=== PATIENT | female | born 1995 | race Caucasian/White ===

== ENCOUNTER 2018-03-31 07:40 | Inpatient (IN) ==
[2018-03-31] MEDS ORDERED: Ondansetron ODT 4 MG TAB.RAPDIS SL ONE (07:52)
--- NOTE | 2018-03-31 07:56 | Emergency Department Note ---
Disposition Clinical Impression: Nausea & vomiting Qualifiers: Vomiting type: unspecified Vomiting Intractability: non-intractable Qualified Code(s): R11.2 - Nausea with vomiting, unspecified Fever Qualifiers: Fever type: unspecified Qualified Code(s): R50.9 - Fever, unspecified Disposition: Admitted As Inpatient Condition: Fair Time of Disposition: 12:23 General Adult HPI - General Stated complaint: Flu like symptoms Time Seen by Provider: 03/31/18 07:45 Source: patient, family Mode of arrival: ambulatory Limitations: no limitations Nursing Notes Reviewed: Yes Vital Signs Reviewed: Yes - History of Present Illness HPI Narrative: 22-year-old female with significant past medical history of hypertension currently not taking any medication presenting to the emergency department chief complaint of acute onset nausea, vomiting and diarrhea. Patient states yesterday she was feeling like herself. Today she woke up early to go black Tuesday shopping and ate [place] food. Approximately 2 hours after she ate she had acute onset of nausea, vomiting and diarrhea. Patient has had 5-6 episodes of nonbloody nonbilious vomiting. Similar amount of episodes of nonbloody diarrhea. Mother at bedside was concerned when she stood up and lost her bowels because she could not make it to the bathroom. She brought her here for further evaluation. Patient states she feels warm but has not taken her temperature. Denies any chest pain or shortness of breath. Denies any sick contacts. - Related Data Home Medications Medication Instructions Recorded Confirmed Clindamycin Phos/Benzoyl Perox 1 appl TP BID 12/23/15 12/23/15 [Benzaclin Gel] Levothyroxine [Synthroid] 50 mcg PO DAILY 12/23/15 12/23/15 Lisinopril [Zestril] 5 mg PO DAILY 12/23/15 12/23/15 Norgestimate-Ethinyl Estradiol 1 tab PO DAILY 12/23/15 12/23/15 [Ortho Tri-Cyclen 28 Tablet] Omeprazole [PriLOSEC] 20 mg PO DAILY 12/23/15 12/23/15 metFORMIN [Glucophage] 250 mg PO 0800 12/23/15 12/23/15 Previous Rx's Medication Instructions Recorded Hydrocodone/Acetaminophen [[place] 1 - 2 tab PO Q6H PRN #20 tab 12/19/15 5-325 Tablet] Oxycodone HCl/Acetaminophen 1 each PO Q6HR PRN #28 tablet 12/23/15 [Percocet 10-325 mg Tablet] Rivaroxaban [Xarelto] 10 mg PO DAILY #20 tablet 12/23/15 Dicyclomine [Bentyl] 20 mg PO TID PRN #20 capsule 06/24/16 Naproxen [Naprosyn] 500 mg PO BID PRN #14 tablet 06/24/16 Allergies Allergy/AdvReac Type Severity Reaction Status Date / Time No Known Allergies Allergy Verified 12/19/15 22:18 All systems ED: reviewed and negative except as stated. Constitutional: Reports: as per HPI Eyes: Reports: as per HPI ENT ED: Reports: as per HPI Cardiovascular: Denies: chest pain, palpitations, dyspnea on exertion Respiratory: Denies: cough, dyspnea, wheezes Gastrointestinal: Reports: nausea, vomiting, diarrhea Genitourinary: Reports: as per HPI Musculoskeletal: Reports: as per HPI Integumentary: Reports: as per HPI Neurological: Denies: numbness, paresthesias Psychiatric: Reports: as per HPI Endocrine: Reports: as per HPI Hematological/Lymphatic: Reports: as per HPI Allergic/Immunologic: Reports: as per HPI Past Medical History - Past Medical History Attestation: Yes The following information was validated with the patient. Medical history: Reports: GERD, hypertension Psychiatric history: Reports: ADHD - Social History Smoking Status: Never smoker Alcohol use: Reports: none Drug use: Reports: none Physical Exam - General Limitations: no limitations General appearance: alert, in no apparent distress - Head Head exam: atraumatic, normocephalic, normal inspection - Eye Eye exam: Present: normal appearance. Absent: scleral icterus, conjunctival injection - ENT ENT exam: normal exam, mucous membranes moist - Neck Neck exam: Present: normal inspection, full ROM. Absent: tenderness, meningis mus - Chest Chest inspection: Present: normal inspection, symmetric chest wall rise. Absent: tenderness, rash - Respiratory Respiratory exam: Present: normal lung sounds bilaterally. Absent: respiratory distress, wheezes - Cardiovascular Cardiovascular exam: Present: regular rate, normal rhythm, normal heart sounds - Abdominal Exam Abdominal exam: Present: soft, tenderness. Absent: distention, guarding, rebound, rigidity Abdominal tenderness: Present: diffuse, mild - Extremities Exam Extremities exam: Present: normal inspection, full ROM - Neurological Exam Neurological exam: Present: alert, oriented X3 - Psychiatric Psychiatric exam: Present: normal affect, normal mood - Skin Skin exam: Present: warm Course Course Narrative: 22-year-old female presenting for acute onset nausea, vomiting and diarrhea. In the room patient is alert and oriented 3 and hemodynamically stable. Patient's physical exam shows mild diffuse tenderness to abdomen but otherwise is benign. At this time we will provide her with sublingual Zofran and perform basic laboratory analysis including CBC, BMP, urinalysis and chest x-ray. We will also obtain a flu swab. Patient is febrile in the room. We will provide her with Tylenol as well. Disposition pending results. Patient agrees with this plan. - Reevaluation(s) Reevaluation #1: Patient's laboratory analysis shows leukocytosis but otherwise no acute abnormality. Patient CT of the abdomen and pelvis does not show any acute abn ormality. Influenza test negative. Patient still actively vomiting after Zofran. Phenergan given. After approximately 30 minutes after Phenergan was given patient attended by mouth challenge and vomited multiple times after. Due to patient's tachycardia, fever and intractable nausea and vomiting will plan to admit the patient for further treatment of fluid resuscitation. Patient remains alert and oriented 3 and hemodynamically stable. I spoke with the hospitalist sanitation technician Dr. Robles who agrees to accept the patient at this time. Vital Signs Temperature 103.2 F H 03/31/18 07:56 Pulse Rate 132 03/31/18 07:56 Respiratory Rate 18 03/31/18 07:56 Blood Pressure 136/98 03/31/18 07:56 O2 Sat by Pulse Oximetry 95 03/31/18 07:56 Temperature 101.7 F H 03/31/18 09:46 Pulse Rate 132 03/31/18 07:56 Respiratory Rate 18 03/31/18 07:56 Blood Pressure 136/98 03/31/18 07:56 O2 Sat by Pulse Oximetry 95 03/31/18 07:56 Oxygen Delivery Oxygen Delivery Room Air Medical Decision Making - Lab Data Result diagrams: 03/31/18 08:01 03/31/18 08:09 Lab Results 03/31/18 03/31/18 03/31/18 Range/Units 08:01 08:09 08:09 WBC 16.7 H (4.3-11.1) K/mcL RBC 5.88 H (3.82-4.97) M/mcL Hgb 13.4 (11.5-15.4) g/dL Hct 43.6 (35.3-44.9) % MCV 74.1 L (83.0-100.0) fL MCH 22.8 L (28.0-33.3) pg MCHC 30.7 L (31.6-35.5) g/dL RDW 17.2 H (11.5-14.5) % Plt Count 473 H (140-400) K/mcL MPV 9.7 (9.4-12.4) fL Immature Gran % 0.5 (0-4) % Seg Neutrophils % 88.4 % Lymphocytes % 4.0 % Monocytes % 5.8 % Eosinophils % 1.0 % Basophils % 0.3 % Neutrophils # 14.8 H (1.6-8.9) K/mcL Lymphocytes # 0.7 (0.6-4.6) K/mcL Monocytes # 1.0 (0.0-1.3) K/mcL Eosinophils # 0.2 (0.0-0.6) K/mcL Basophils # 0.1 (0.0-0.2) K/mcL Sodium 138 (136-145) mEq/L Potassium 4.0 (3.5-5.1) mEq/L Chloride 104 (98-107) mEq/L Carbon Dioxide 21 L (23-29) mEq/L BUN 16 (6-20) mg/dL Creatinine 0.77 (0.60-1.20) mg/dL Est GFR ( Amer) > 60 (> 60) Est GFR (Non-Af Amer) > 60 (> 60) BUN/Creatinine Ratio 21 (6-26) Glucose 188 H (70-105) mg/dL Calculated Osmolality 292 (280-300) Calcium 9.3 (8.6-10.3) mg/dL Total Bilirubin 0.4 (0.3-1.0) mg/dL Direct Bilirubin 0.1 (0.0-0.2) mg/dL Indirect Bilirubin 0.3 (0.0-1.2) mg/dL AST 26 (13-39) Units/L ALT 24 (7-52) Units/L Alkaline Phosphatase 99 (34-104) Units/L Serum Total Protein 8.3 (6.4-8.9) g/dL Albumin 4.2 (3.5-5.7) g/dL Globulin 4.1 H (2.4-3.5) g/dL Albumin/Globulin Ratio 1.0 L (1.1-2.2) Lipase 4 L (11-82) Units/L Ur Specimen Adequacy Urine Color (Yellow) Urine Clarity (Clear) Urine pH (5.0-8.0) pH Units Ur Specific [place] (1.010-1.025) Urine Protein (Neg-Trace) mg/dL Urine Glucose (UA) (Normal) mg/dL Urine Ketones (Negative) mg/dL Urine Blood (Negative) Urine Nitrite (Negative) Urine Bilirubin (Negative) Urine Urobilinogen (Normal) mg/dL Ur Leukocyte Esterase (Negative) Urine Microscopic RBC (0-3) per hpf Urine Microscopic WBC (0-3) per hpf Ur Squamous Epith Cells (None-Few) per lpf Urine Bacteria (None-Few) per hpf Hyaline Casts (None-Few) per lpf Ur Culture Indicated? (NO) Urine Test (Negative) Hepatitis A IgM Ab Nonreactive (Nonreactive) Hep Bs Antigen Nonreactive (Nonreactive) Hep B Core IgM Ab Nonreactive (Nonreactive) Hepatitis C Ab Screen Nonreactive (Nonreactive) 03/31/18 03/31/18 Range/Units 08:13 08:13 WBC (4.3-11.1) K/mcL RBC (3.82-4.97) M/mcL Hgb (11.5-15.4) g/dL Hct (35.3-44.9) % MCV (83.0-100.0) fL MCH (28.0-33.3) pg MCHC (31.6-35.5) g/dL RDW (11.5-14.5) % Plt Count (140-400) K/mcL MPV (9.4-12.4) fL Immature Gran % (0-4) % Seg Neutrophils % % Lymphocytes % % Monocytes % % Eosinophils % % Basophils % % Neutrophils # (1.6-8.9) K/mcL Lymphocytes # (0.6-4.6) K/mcL Monocytes # (0.0-1.3) K/mcL Eosinophils # (0.0-0.6) K/mcL Basophils # (0.0-0.2) K/mcL Sodium (136-145) mEq/L Potassium (3.5-5.1) mEq/L Chloride (98-107) mEq/L Carbon Dioxide (23-29) mEq/L BUN (6-20) mg/dL Creatinine (0.60-1.20) mg/dL Est GFR ( Amer) (> 60) Est GFR (Non-Af Amer) (> 60) BUN/Creatinine Ratio (6-26) Glucose (70-105) mg/dL Calculated Osmolality (280-300) Calcium (8.6-10.3) mg/dL Total Bilirubin (0.3-1.0) mg/dL Direct Bilirubin (0.0-0.2) mg/dL Indirect Bilirubin (0.0-1.2) mg/dL AST (13-39) Units/L ALT (7-52) Units/L Alkaline Phosphatase (34-104) Units/L Serum Total Protein (6.4-8.9) g/dL Albumin (3.5-5.7) g/dL Globulin (2.4-3.5) g/dL Albumin/Globulin Ratio (1.1-2.2) Lipase (11-82) Units/L Ur Specimen Adequacy See below A Urine Color Dark Yellow (Yellow) Urine Clarity Turbid A (Clear) Urine pH 5.0 (5.0-8.0) pH Units Ur Specific [place] 1.020 (1.010-1.025) Urine Protein 100 H (Neg-Trace) mg/dL Urine Glucose (UA) Normal (Normal) mg/dL Urine Ketones Trace H (Negative) mg/dL Urine Blood Large H (Negative) Urine Nitrite Negative (Negative) Urine Bilirubin Moderate H (Negative) Urine Urobilinogen Normal (Normal) mg/dL Ur Leukocyte Esterase Moderate H (Negative) Urine Microscopic RBC TNTC H (0-3) per hpf Urine Microscopic WBC 15-30 H (0-3) per hpf Ur Squamous Epith Cells Many H (None-Few) per lpf Urine Bacteria Few (None-Few) per hpf Hyaline Casts None Seen (None-Few) per lpf Ur Culture Indicated? NO. A (NO) Urine Test Negative (Negative) Hepatitis A IgM Ab (Nonreactive) Hep Bs Antigen (Nonreactive) Hep B Core IgM Ab (Nonreactive) Hepatitis C Ab Screen (Nonreactive)
[2018-03-31] MEDS ORDERED: 0.9 % Sodium Chloride 1,000 ML IVC ONE (08:01)
[2018-03-31 08:22] LABS: Basophils # 0.1 K/mcL (0.0-0.2); Basophils % 0.3 %; Eosinophils # 0.2 K/mcL (0.0-0.6); Hematocrit 43.6 % (35.3-44.9); Hemoglobin 13.4 g/dL (11.5-15.4); Immature Granulocytes % 0.5 % (0-4); Lymphocytes # 0.7 K/mcL (0.6-4.6); Mean Corpuscular HGB Conc 30.7 g/dL (31.6-35.5); Mean Corpuscular Hemoglobin 22.8 pg (28.0-33.3); Mean Corpuscular Volume 74.1 fL (83.0-100.0); Mean Platelet Volume 9.7 fL (9.4-12.4); Monocytes % 5.8 %; Neutrophils # 14.8 K/mcL (1.6-8.9); Platelet Count 473 K/mcL (140-400); Red Blood Count 5.88 M/mcL (3.82-4.97); Red Cell Distribution Width 17.2 % (11.5-14.5); Segmented Neutrophils % 88.4 %
[2018-03-31 08:29] LABS: Bilirubin,Urine Moderate (Negative); Blood,Urine Large (Negative); Clarity,Urine Turbid (Clear); Color,Urine Dark Yellow (Yellow); Glucose,Urine (UA) Normal (Normal); Ketones,Urine Trace mg/dL (Negative); Leukocyte Esterase,Urine Moderate (Negative); Nitrite,Urine Negative (Negative); Protein,Urine 100 mg/dL (Neg-Trace); Urobilinogen,Urine Normal (Normal)
[2018-03-31 08:35] LABS: Bacteria,Urine Few per hpf (None-Few); Hyaline Casts,Urine None Seen per lpf (None-Few); RBC,Urine TNTC per hpf (0-3); Squamous Epithelial Cell,Urine Many per lpf (None-Few); WBC,Urine 15-30 per hpf (0-3)
[2018-03-31 08:40] LABS: BUN/Creatinine Ratio 21 (6-26); Blood Urea Nitrogen 16 mg/dL (6-20); Calcium 9.3 mg/dL (8.6-10.3); Carbon Dioxide 21 mEq/L (23-29); Chloride 104 mEq/L (98-107); Glucose 188 mg/dL (70-105); Osmolality,Calculated 292 (280-300); Sodium 138 mEq/L (136-145); eGFR For Non-African Americans > 60 (> 60)
--- NOTE | 2018-03-31 08:50 | Emergency Department Note ---
Disposition Clinical Impression: Nausea & vomiting Qualifiers: Vomiting type: unspecified Vomiting Intractability: non-intractable Qualified Code(s): R11.2 - Nausea with vomiting, unspecified Sepsis Qualifiers: Sepsis type: sepsis due to unspecified organism Qualified Code(s): A41.9 - Sepsis, unspecified organism Disposition: Still a Patient Referrals: Semaj Bashir MD [Primary Care Provider] - General Adult HPI - General Chief complaint: ED Nausea/Vomiting/Diarrhea Stated complaint: Flu like symptoms Time Seen by Provider: 03/31/18 07:45 Source: patient, family Mode of arrival: ambulatory Limitations: no limitations - History of Present Illness Pain Scale: 5 - Related Data Home Medications Medication Instructions Recorded Confirmed Clindamycin Phos/Benzoyl Perox 1 appl TP BID 12/23/15 12/23/15 [Benzaclin Gel] Levothyroxine [Synthroid] 50 mcg PO DAILY 12/23/15 12/23/15 Lisinopril [Zestril] 5 mg PO DAILY 12/23/15 12/23/15 Norgestimate-Ethinyl Estradiol 1 tab PO DAILY 12/23/15 12/23/15 [Ortho Tri-Cyclen 28 Tablet] Omeprazole [PriLOSEC] 20 mg PO DAILY 12/23/15 12/23/15 metFORMIN [Glucophage] 250 mg PO 0800 12/23/15 12/23/15 Previous Rx's Medication Instructions Recorded Hydrocodone/Acetaminophen [[place] 1 - 2 tab PO Q6H PRN #20 tab 12/19/15 5-325 Tablet] Oxycodone HCl/Acetaminophen 1 each PO Q6HR PRN #28 tablet 12/23/15 [Percocet 10-325 mg Tablet] Rivaroxaban [Xarelto] 10 mg PO DAILY #20 tablet 12/23/15 Dicyclomine [Bentyl] 20 mg PO TID PRN #20 capsule 06/24/16 Naproxen [Naprosyn] 500 mg PO BID PRN #14 tablet 06/24/16 Allergies Allergy/AdvReac Type Severity Reaction Status Date / Time No Known Allergies Allergy Verified 12/19/15 22:18 Constitutional: Reports: as per HPI Eyes: Reports: as per HPI ENT ED: Reports: as per HPI Cardiovascular: Denies: chest pain, palpitations, dyspnea on exertion Respiratory: Denies: cough, dyspnea, wheezes Gastrointestinal: Reports: nausea, vomiting, diarrhea Genitourinary: Reports: as per HPI Musculoskeletal: Reports: as per HPI Integumentary: Reports: as per HPI Neurological: Denies: numbness, paresthesias Psychiatric: Reports: as per HPI Endocrine: Reports: as per HPI Hematological/Lymphatic: Reports: as per HPI Allergic/Immunologic: Reports: as per HPI Past Medical History - Past Medical History Medical history: Reports: GERD, hypertension Psychiatric history: Reports: ADHD - Social History Smoking Status: Never smoker Smokeless Tobacco Status: No Alcohol use: Reports: none Drug use: Reports: none Physical Exam - General Limitations: no limitations General appearance: alert, in no apparent distress Course Vital Signs Temperature 103.2 F H 03/31/18 07:56 Pulse Rate 132 03/31/18 07:56 Respiratory Rate 18 03/31/18 07:56 Blood Pressure 136/98 03/31/18 07:56 O2 Sat by Pulse Oximetry 95 03/31/18 07:56 Temperature 103.2 F H 03/31/18 07:56 Pulse Rate 132 03/31/18 07:56 Respiratory Rate 18 03/31/18 07:56 Blood Pressure 136/98 03/31/18 07:56 O2 Sat by Pulse Oximetry 95 03/31/18 07:56 Oxygen Delivery Oxygen Delivery Room Air Medical Decision Making - Lab Data Result diagrams: 03/31/18 08:01 03/31/18 08:09 Lab Results 03/31/18 03/31/18 03/31/18 Range/Units 08:01 08:09 08:13 WBC 16.7 H (4.3-11.1) K/mcL RBC 5.88 H (3.82-4.97) M/mcL Hgb 13.4 (11.5-15.4) g/dL Hct 43.6 (35.3-44.9) % MCV 74.1 L (83.0-100.0) fL MCH 22.8 L (28.0-33.3) pg MCHC 30.7 L (31.6-35.5) g/dL RDW 17.2 H (11.5-14.5) % Plt Count 473 H (140-400) K/mcL MPV 9.7 (9.4-12.4) fL Immature Gran % 0.5 (0-4) % Seg Neutrophils % 88.4 % Lymphocytes % 4.0 % Monocytes % 5.8 % Eosinophils % 1.0 % Basophils % 0.3 % Neutrophils # 14.8 H (1.6-8.9) K/mcL Lymphocytes # 0.7 (0.6-4.6) K/mcL Monocytes # 1.0 (0.0-1.3) K/mcL Eosinophils # 0.2 (0.0-0.6) K/mcL Basophils # 0.1 (0.0-0.2) K/mcL Sodium 138 (136-145) mEq/L Potassium 4.0 (3.5-5.1) mEq/L Chloride 104 (98-107) mEq/L Carbon Dioxide 21 L (23-29) mEq/L BUN 16 (6-20) mg/dL Creatinine 0.77 (0.60-1.20) mg/dL Est GFR ( Amer) > 60 (> 60) Est GFR (Non-Af Amer) > 60 (> 60) BUN/Creatinine Ratio 21 (6-26) Glucose 188 H (70-105) mg/dL Calculated Osmolality 292 (280-300) Calcium 9.3 (8.6-10.3) mg/dL Ur Specimen Adequacy See below A Urine Color Dark Yellow (Yellow) Urine Clarity Turbid A (Clear) Urine pH 5.0 (5.0-8.0) pH Units Ur Specific [place] 1.020 (1.010-1.025) Urine Protein 100 H (Neg-Trace) mg/dL Urine Glucose (UA) Normal (Normal) mg/dL Urine Ketones Trace H (Negative) mg/dL Urine Blood Large H (Negative) Urine Nitrite Negative (Negative) Urine Bilirubin Moderate H (Negative) Urine Urobilinogen Normal (Normal) mg/dL Ur Leukocyte Esterase Moderate H (Negative) Urine Microscopic RBC TNTC H (0-3) per hpf Urine Microscopic WBC 15-30 H (0-3) per hpf Ur Squamous Epith Cells Many H (None-Few) per lpf Urine Bacteria Few (None-Few) per hpf Hyaline Casts None Seen (None-Few) per lpf Ur Culture Indicated? NO. A (NO) Urine Test (Negative) 03/31/18 Range/Units 08:13 WBC (4.3-11.1) K/mcL RBC (3.82-4.97) M/mcL Hgb (11.5-15.4) g/dL Hct (35.3-44.9) % MCV (83.0-100.0) fL MCH (28.0-33.3) pg MCHC (31.6-35.5) g/dL RDW (11.5-14.5) % Plt Count (140-400) K/mcL MPV (9.4-12.4) fL Immature Gran % (0-4) % Seg Neutrophils % % Lymphocytes % % Monocytes % % Eosinophils % % Basophils % % Neutrophils # (1.6-8.9) K/mcL Lymphocytes # (0.6-4.6) K/mcL Monocytes # (0.0-1.3) K/mcL Eosinophils # (0.0-0.6) K/mcL Basophils # (0.0-0.2) K/mcL Sodium (136-145) mEq/L Potassium (3.5-5.1) mEq/L Chloride (98-107) mEq/L Carbon Dioxide (23-29) mEq/L BUN (6-20) mg/dL Creatinine (0.60-1.20) mg/dL Est GFR ( Amer) (> 60) Est GFR (Non-Af Amer) (> 60) BUN/Creatinine Ratio (6-26) Glucose (70-105) mg/dL Calculated Osmolality (280-300) Calcium (8.6-10.3) mg/dL Ur Specimen Adequacy Urine Color (Yellow) Urine Clarity (Clear) Urine pH (5.0-8.0) pH Units Ur Specific [place] (1.010-1.025) Urine Protein (Neg-Trace) mg/dL Urine Glucose (UA) (Normal) mg/dL Urine Ketones (Negative) mg/dL Urine Blood (Negative) Urine Nitrite (Negative) Urine Bilirubin (Negative) Urine Urobilinogen (Normal) mg/dL Ur Leukocyte Esterase (Negative) Urine Microscopic RBC (0-3) per hpf Urine Microscopic WBC (0-3) per hpf Ur Squamous Epith Cells (None-Few) per lpf Urine Bacteria (None-Few) per hpf Hyaline Casts (None-Few) per lpf Ur Culture Indicated? (NO) Urine Test Negative (Negative) Attestation Statement - Attestation Attestation: I examined this patient and my medical decision-making was reviewed with the Resident Physician. I agree with the documented findings, disposition and vinh tment plan as described except to the extent set forth below. 22 year old female presents to the ED with complaints of flu like symptoms and states that she thnks she hd bad [place] food yesterday and is febrile on exam in additiont to being tachcyardiac thus meeting SIRS criteria. Patinet states that this has been going on ith OK for the past 2 hours. We will start sepsis protocol and obtain ABCT for further evlaution as this may be food poisoning vs colitis.
[2018-03-31 09:46] LABS: Albumin 4.2 g/dL (3.5-5.7); Alkaline Phosphatase 99 Units/L (34-104); Aspartate Amino Transferase 26 Units/L (13-39); Bilirubin,Direct 0.1 mg/dL (0.0-0.2); Bilirubin,Indirect 0.3 mg/dL (0.0-1.2); Bilirubin,Total 0.4 mg/dL (0.3-1.0); Globulin 4.1 g/dL (2.4-3.5); Lipase 4 Units/L (11-82); Total Protein 8.3 g/dL (6.4-8.9)
[2018-03-31 10:06] LABS: Hepatitis A Antibody IgM Nonreactive (Nonreactive); Hepatitis B Core IgM Nonreactive (Nonreactive); Hepatitis B Surface Antigen Nonreactive (Nonreactive); Hepatitis C Virus Antibody Nonreactive (Nonreactive)
[2018-03-31 10:12] LABS: Alanine Aminotransferase 24 Units/L (7-52)
[2018-03-31] MEDS ORDERED: *HR* Promethazine 25 MG/ML VIAL IVP ONE (10:15)
[2018-03-31] MEDS ORDERED: Promethazine 25 MG in 0.9 % Sodium Chloride 50 ML IVPB ONE (10:30)
[2018-03-31] MEDS ORDERED: Naloxone 0.4 MG/ML INJ IVP PRN (14:09)
--- NOTE | 2018-03-31 14:18 | Internal Med History&Physical ---
Date of Encounter: 03/31/18 Time of Encounter: 14:16 Internal Medicine - H&P: HPI Chief complaint: ABD pain, N/V/D Admitted From: Home Plans for Post Hospital Care: Home History of present illness: Ms. Dos Santos is a 22 year old female probably cystic ovarian syndrome presented to [facility] on 03/31/2018 with complaints of abdominal pain, nausea, vomiting and diarrhea. She was placed in observation status for further workup and treatment. Information obtained from chart review and patient report. Patient said she was in her usual state of health until O2 100 this morning. Says she went out plaque Tuesday shopping and stopped at food court and had [place] food. Says she went home and is initiated later down to acute onset of abdominal pain. Projectile vomiting and loose/watery stool. No sick contacts that she is aware of and person she was with you had same food is not experiencing same symptoms. Denied recent ATB use. Says she feels a little better on my exam but still feels very nauseated and unable to keep anything down. Last loose stool was approximately 2 hours ago. Past Med Surg Social Fam HX - Past Medical History Medical history: GERD, hypertension Psychiatric history: ADHD - Past Surgical History Additional surgical history: right ankle. cyst removed from back - Social History Smoking Status: Never smoker Smokeless Tobacco Status: No Alcohol use: none Drug use: none - Additional Family History Additional family history: HI history reviewed and noncontributory per patient Internal Medicine - H&P: Meds No Known Home Drugs 03/31/18 [History] Allergy/AdvReac Type Severity Reaction Status Date / Time No Known Allergies Allergy Verified 12/19/15 22:18 All Systems PM: A 10-system review of systems was performed and is negative for pertinent findings except as documented above in the HPI. - Constitutional Constitutional: fever(s), weakness - EENT Eyes: no change in vision, no discharge, no pain, no photophobia Ears: no ear discharge, no ear pain, no tinnitus Nose, mouth and throat: no dysphagia, no nasal discharge, no neck pain, no sore throat - Cardiovascular Cardiovascular ROS IM: no chest pain, no diaphoresis, no dyspnea, no lightheadedness, no palpitations, no syncope - Respiratory Respiratory: no cough, no dyspnea, no wheezing, no excessive phlegm production - Gastrointestinal Gastrointestinal: abdominal pain, cramping, diarrhea, loose stools, vomiting - Genitourinary Genitourinary: no change in urinary stream, no dysuria, no flank pain, no hematuria - Musculoskeletal Musculoskeletal ROS IM: no numbness, no tingling - Integumentary Integumentary IM: no rash, no unusual bruising - Neurological Neurological ROS: no confusion, no convulsions, no focal weakness, no numbness, no tingling, no tremor(s) - Constitutional Vitals: Temp Pulse Resp BP Pulse Ox 101.7 F H 122 18 136/98 95 03/31/18 09:46 03/31/18 12:41 03/31/18 07:56 03/31/18 07:56 03/31/18 12:41 General appearance: Present: A&O X 3, morbidly obese, pleasant, no acute distress Exam: . - Head Head exam: Present: atraumatic, normocephalic - Eye Eye exam: Present: PERRL, conjuntiva pink, sclera anicteric Pupils: Present: PERRL - Neck Neck exam general surgery: Present: supple, trachea midline. Absent: lymphadenopathy - Respiratory Respiratory exam: Present: CTAB. Absent: accessory muscle use, rales, rhonchi, wheezes - Cardiovascular Cardiovascular exam: Present: RRR, +S1, +S2. Absent: diastolic murmur, gallop, rubs, systolic murmur - GI/Abdominal GI/Abdominal exam: Present: normal bowel sounds, soft, no peritoneal signs. Absent: distended, tenderness - Extremities Exam Extremities exam: Present: warm, radial pulses palpable and symmetrical. Absent: calf tenderness, cyanotic, pedal edema - Neurological Exam Neurological exam: Present: CN II-XII intact, oriented X3, no focal deficits. Absent: pronater drift, facial droop, speech deficit - Skin Skin exam: Present: dry, intact Internal Med - H&P Results - Labs CBC & Chem 7: 03/31/18 08:01 03/31/18 08:09 Labs: Short CBC 03/31/18 Range/Units 08:01 WBC 16.7 H (4.3-11.1) K/mcL Hgb 13.4 (11.5-15.4) g/dL Hct 43.6 (35.3-44.9) % Plt Count 473 H (140-400) K/mcL Neutrophils # 14.8 H (1.6-8.9) K/mcL BMP 03/31/18 08:09 Sodium 138 Potassium 4.0 Chloride 104 Carbon Dioxide 21 L BUN 16 Creatinine 0.77 Glucose 188 H Calcium 9.3 Liver Function 03/31/18 Range/Units 08:09 Total Bilirubin 0.4 (0.3-1.0) mg/dL Direct Bilirubin 0.1 (0.0-0.2) mg/dL AST 26 (13-39) Units/L ALT 24 (7-52) Units/L Alkaline Phosphatase 99 (34-104) Units/L Albumin 4.2 (3.5-5.7) g/dL Urine 03/31/18 Range/Units 08:13 Urine Color Dark Yellow (Yellow) Urine Clarity Turbid A (Clear) Urine pH 5.0 (5.0-8.0) pH Units Ur Specific [place] 1.020 (1.010-1.025) Urine Protein 100 H (Neg-Trace) mg/dL Urine Glucose (UA) Normal (Normal) mg/dL - Impressions ITS Impressions Chest X-Ray 03/31/18 08:01 IMPRESSION: 1. No active pulmonary disease. D/ / Rupert Shetty MD / Rupert Shetty MD Interpreting Provider: Rupert Shetty MD Abdomen/Pelvis CT 03/31/18 08:41 IMPRESSION: 1. No acute findings within the abdomen. 2. No acute findings within the pelvis. 3. Stable borderline mesenteric and retroperitoneal lymph nodes, unchanged compared to 06/24/2016. D/ / 03/31/2018 09:58:25 Luis Alfredo Devi MD / jen Interpreting Provider: Luis Alfredo Devi MD - Assessment and plan (1) Sepsis Current Visit: Yes Status: Acute Assessment and plan: with fever, elevated WBC and tachycardia on arrival. Multifactorial with possible gastroenteritis and UTI. Continue IV fluids. Start IV ceftriaxone for possible UTI once repeat UA with C&S is completed. Lactic acid and blood cx's pending Qualifiers: Sepsis type: sepsis due to unspecified organism Qualified Code(s): A41.9 - Sepsis, unspecified organism (2) UTI (urinary tract infection) Current Visit: Yes Status: Acute Assessment and plan: UA concerning for UTI. ABD CT evidence of pyelonephritis. Denied dysuria, flank pain. Urine culture not sent due to large number of epithelial cells. Repeat UA with C&S and start ceftriaxone. Follow urine culture and narrow ATB accordingly. Qualifiers: Urinary tract infection type: acute cystitis Hematuria presence: without hematuria Qualified Code(s): N30.00 - Acute cystitis without hematuria (3) Gastroenteritis Current Visit: Yes Status: Acute Assessment and plan: suspected. Presented with ABD pain, N/V/D that started on day of arrival after eating [place] food. No recent ATB use, no sick contacts. ABD CT nonacute. Cont supportive care with IV fluids, PRN IV zofran, NPO except ice chips/sips of H2O. GI panel pending. (4) Polycystic ovarian syndrome Current Visit: Yes Status: Acute Assessment and plan: per hx. Follow-up with PCP outpatient (5) Morbid obesity Current Visit: Yes Status: Acute Assessment and plan: BMI 42. Lifestyle modifications encouraged. Supposed to be on metformin and lisinopril at home for her polycystic ovarian syndrome. Will check Hgb A1c and monitor BP. (6) DVT prophylaxis Current Visit: Yes Status: Acute Assessment and plan: lovenox - Time Spent With Patient Total time spent is greater than 50% in coordination of care (as documented) at patient's floor/unit and/or counseling patient:
[2018-03-31] MEDS ORDERED: cefTRIAXone 1,000 MG in 0.9 % Sodium Chloride Mini Bag 100 ML IVPB SCH (15:00)
[2018-03-31] MEDS: 0.9 % Sodium Chloride 1,000 ML IVC SCH (15:25)
[2018-03-31 19:40] LABS: Adenovirus F 40/41 PCR Not detected (Not detect); Astrovirus PCR Not detected (Not detect); C.difficile Toxin A/B Gene PCR Not detected (Not detect); Campylobacter by PCR Not detected (Not detect); Cryptosporidium by PCR Not detected (Not detect); Cyclospora cayetanensis PCR Not detected (Not detect); E. coli O157 by PCR Not detected (Not detect); Entamoeba histolytica PCR Not detected (Not detect); Enteroaggregative E.coli(EAEC) Not detected (Not detect); Enteropathogenic E.coli(EPEC) Not detected (Not detect); Enterotoxigenic E.coli (ETEC) Not detected (Not detect); Norovirus GI/GII PCR DETECTED (Not detect); Plesiomonas shigelloides PCR Not detected (Not detect); Rotavirus A PCR Not detected (Not detect); Salmonella PCR Not detected (Not detect); Sapovirus PCR Not detected (Not detect); Shig/EnteroinvasiveE coli EIEC Not detected (Not detect); Shigalike tox-prod E coli STEC Not detected (Not detect); Vibrio PCR Not detected (Not detect); Vibrio cholerae PCR Not detected (Not detect); Yersinia enterocolitica PCR Not detected (Not detect)
[2018-03-31 19:43] LABS: Giardia lamblia PCR DETECTED (Not detect)
--- NOTE | 2018-03-31 20:24 | Event Note ---
Date of Encounter: 03/31/18 Time of Encounter: 19:50 Alerted by pts. nurse JOSE Stack that pts. GI panel was positive for Norovirus GI/GII PCR and Giardia Lamblia PCR. Contact precautions ordered and will continue pts. 0.9 NS IV fluids for Norovirus. 500 mg Metronidazole BID PO ordered for Giardia Lamblia. Culturelle PO ordered as well.
[2018-03-31] MEDS: metroNIDAZOLE 500 MG TABLET PO SCH (21:59)
[2018-03-31] MEDS: Lactobacillus 1 EACH CAP.SPRINK PO SCH (22:00)
[2018-04-01 04:33] LABS: Hematocrit 37.3 % (35.3-44.9); Mean Corpuscular HGB Conc 29.8 g/dL (31.6-35.5); Mean Corpuscular Hemoglobin 22.8 pg (28.0-33.3); Mean Corpuscular Volume 76.7 fL (83.0-100.0); Platelet Count 329 K/mcL (140-400); Red Blood Count 4.86 M/mcL (3.82-4.97); Red Cell Distribution Width 16.4 % (11.5-14.5)
[2018-04-01 04:42] LABS: Hemoglobin 11.1 g/dL (11.5-15.4)
[2018-04-01 04:52] LABS: BUN/Creatinine Ratio 19 (6-26); Blood Urea Nitrogen 11 mg/dL (6-20); Calcium 7.5 mg/dL (8.6-10.3); Carbon Dioxide 24 mEq/L (23-29); Chloride 104 mEq/L (98-107); Glucose 112 mg/dL (70-105); Osmolality,Calculated 282 (280-300); Potassium 3.2 mEq/L (3.5-5.1); Sodium 136 mEq/L (136-145); eGFR For Non-African Americans > 60 (> 60)
[2018-04-01] MEDS: 0.9 % Sodium Chloride 1,000 ML IVC SCH (04:54)
[2018-04-01] MEDS: *HR* Enoxaparin 40 MG/0.4 ML SYRINGE SQ SCH (06:10)
[2018-04-01] MEDS: metroNIDAZOLE 500 MG TABLET PO SCH ×2 (07:45→21:19)
[2018-04-01] MEDS: Lactobacillus 1 EACH CAP.SPRINK PO SCH (07:45)
--- NOTE | 2018-04-01 12:46 | Internal Med Progress Note ---
Hospitalist Progress Note - Encounter Date of Encounter: 04/01/18 Time of Encounter: 12:44 - Subjective Interval History: Patient is still has watery runny diarrhea but slowing down the frequency. Able to tolerate semisolid diet and willing to try advance diet. Patient denies nausea vomiting abdominal pain at this time. Review the lab. Patient denies fever chills dizziness chest pain cough shortness of breath. Noticed slight dark urine but denies burning micturition, increased frequency or urgency. - Exam Vitals: Temp Pulse Resp BP Pulse Ox 98.8 F 101 15 127/82 95 04/01/18 11:22 04/01/18 11:22 04/01/18 11:22 04/01/18 11:22 04/01/18 11:22 Exam: .General appearance: No acute distress, A&O X 3, obese Head exam: Atraumatic Eye exam: EOMI, PERRLA ENT exam: Moist oral mucosa Neck nontender, supple Respiratory exam: Clear to auscultation bilaterally Cardiovascular exam: Regular rate and rhythm, no systolic murmur Abdominal exam: Soft, nontender, nondistended, positive bowel sounds Extremities exam: No calf tenderness, no pedal edema Present: Skin-no rash, warm, dry, intact Neurological exam: CN II-XII intact, no focal deficits. No facial droop. Normal speech. - Assessment and Plan (1) Gastroenteritis Current Visit: Yes Status: Acute Assessment and Plan: Symptomatic but not improving. GI panel positive for Giardia and no rotavirus. Flagyl was started. He stopped Rocephin. Continue symptomatic treatment with IV fluid, antiemetic, PPI, probiotic. Possible discharge in 102 days once patient improved symptomatically (2) Polycystic ovarian syndrome Current Visit: Yes Status: Acute Assessment and Plan: per hx. Follow-up with PCP outpatient (3) Morbid obesity Current Visit: Yes Status: Acute Assessment and Plan: BMI 42. Lifestyle modifications encouraged. Supposed to be on metformin and lisinopril at home for her polycystic ovarian syndrome but not taking any medication. Ordered Hgb A1c and monitor BP. (4) Sepsis Current Visit: Yes Status: Acute Assessment and Plan: with fever, elevated WBC and tachycardia on arrival but normal lactic acid. Secondary to gastroenteritis possibly. Continue IV fluids. blood cx's no growth yet (5) UTI (urinary tract infection) Current Visit: Yes Status: Acute Assessment and Plan: On admission UA concerning for UTI. ABD CT with no acute finding. Urine culture not sent due to large number of epithelial cells. On my evaluation less likely UTI therefore they stopped Rocephin and ordered Repeat UA . Will consider urine culture and appropriate antibiotic if any concern of UTI. (6) DVT prophylaxis Current Visit: Yes Status: Acute Assessment and Plan: lovenox - Time Spent with Patient Total time spent is greater than 50% in coordination of care (as documented) at patient's floor/unit and/or counseling patient: 25 - 35 minutes Plan of Care Discussed with: patient (Plan of care discussed with nursing staff also) Internal Medicine: Result - Labs CBC & Chem 7: 04/01/18 03:24 04/01/18 03:24 Labs: Short CBC 04/01/18 Range/Units 03:24 WBC 9.4 (4.3-11.1) K/mcL Hgb 11.1 L D (11.5-15.4) g/dL Hct 37.3 (35.3-44.9) % Plt Count 329 (140-400) K/mcL BMP 04/01/18 03:24 Sodium 136 Potassium 3.2 L Chloride 104 Carbon Dioxide 24 BUN 11 Creatinine 0.58 L Glucose 112 H Calcium 7.5 L Consult Discharge Plan - Plan (4) Sepsis Qualifiers: Sepsis type: sepsis due to unspecified organism Qualified Code(s): A41.9 - Sepsis, unspecified organism (5) UTI (urinary tract infection) Qualifiers: Urinary tract infection type: acute cystitis Hematuria presence: without h ematuria Qualified Code(s): N30.00 - Acute cystitis without hematuria
[2018-04-01 14:29] LABS: Bilirubin,Urine Negative (Negative); Blood,Urine Moderate (Negative); Color,Urine Yellow (Yellow); Glucose,Urine (UA) Normal (Normal); Ketones,Urine Negative (Negative); Leukocyte Esterase,Urine Moderate (Negative); Nitrite,Urine Negative (Negative); PH,Urine 6.5 pH Units (5.0-8.0); Protein,Urine Negative (Neg-Trace); Specific Gravity,Urine < 1.005 (1.010-1.025); Urobilinogen,Urine Normal (Normal)
[2018-04-01 14:32] LABS: Bacteria,Urine None Seen per hpf (None-Few); Hyaline Casts,Urine None Seen per lpf (None-Few); Squamous Epithelial Cell,Urine Many per lpf (None-Few); WBC,Urine 0-3 per hpf (0-3)
[2018-04-01 14:33] LABS: Clarity,Urine Clear (Clear)
[2018-04-01] MEDS: Acetaminophen 325 MG TABLET PO PRN (16:28)
[2018-04-01] MEDS: Ondansetron 4 MG/2 ML VIAL IVP PRN (22:05)
[2018-04-02 03:04] LABS: Hematocrit 35.8 % (35.3-44.9); Hemoglobin 10.9 g/dL (11.5-15.4); Mean Corpuscular HGB Conc 30.4 g/dL (31.6-35.5); Mean Corpuscular Hemoglobin 22.9 pg (28.0-33.3); Mean Corpuscular Volume 75.1 fL (83.0-100.0); Mean Platelet Volume 9.6 fL (9.4-12.4); Platelet Count 320 K/mcL (140-400); Red Blood Count 4.77 M/mcL (3.82-4.97); Red Cell Distribution Width 16.1 % (11.5-14.5)
[2018-04-02 03:22] LABS: BUN/Creatinine Ratio 11 (6-26); Blood Urea Nitrogen 6 mg/dL (6-20); Calcium 8.1 mg/dL (8.6-10.3); Carbon Dioxide 24 mEq/L (23-29); Chloride 110 mEq/L (98-107); Glucose 106 mg/dL (70-105); Osmolality,Calculated 286 (280-300); Potassium 3.7 mEq/L (3.5-5.1); Sodium 139 mEq/L (136-145); eGFR For Non-African Americans > 60 (> 60)
[2018-04-02] MEDS: *HR* Enoxaparin 40 MG/0.4 ML SYRINGE SQ SCH (05:56)
[2018-04-02] MEDS: metroNIDAZOLE 500 MG TABLET PO SCH ×2 (09:05→20:06)
[2018-04-02] MEDS: Lactobacillus 1 EACH CAP.SPRINK PO SCH (09:05)
[2018-04-02] MEDS: Ondansetron 4 MG/2 ML VIAL IVP PRN (09:06)
[2018-04-02 10:06] LABS: Estimated Average Glucose 131 mg/dl; Hemoglobin A1C 6.2 %
--- NOTE | 2018-04-02 12:26 | Internal Med Progress Note ---
Hospitalist Progress Note - Encounter Date of Encounter: 04/02/18 Time of Encounter: 12:23 - Subjective Interval History: Patient is still has watery runny diarrhea but slowing down the frequency and had 3 watery diarrhea overnight. Complained of nausea and does not want to eat solid diet but want to go back on liquid. Patient denies nausea vomiting a bdominal pain at this time. Review the lab. Patient denies fever chills dizziness chest pain cough shortness of breath. - Exam Vitals: Temp Pulse Resp BP Pulse Ox 98.3 F 91 18 115/75 94 04/02/18 11:29 04/02/18 11:29 04/02/18 11:29 04/02/18 11:29 04/02/18 11:29 Exam: .General appearance: No acute distress, A&O X 3, obese Eye exam: EOMI, PERRLA ENT exam: Moist oral mucosa Neck nontender, supple Respiratory exam: Clear to auscultation bilaterally Cardiovascular exam: Regular rate and rhythm, no systolic murmur Abdominal exam: Soft, nontender, nondistended, positive bowel sounds Extremities exam: No calf tenderness, no pedal edema Present: Skin-no rash, warm, dry, intact Neurological exam: CN II-XII intact, no focal deficits. No facial droop. Normal speech. - Assessment and Plan (1) Gastroenteritis Current Visit: Yes Status: Acute Assessment and Plan: Symptomatic with slight improvement. Still has watery diarrhea and has recurrence of nausea therefore will stop current diet and go back to full liquid diet as tolerated. GI panel with Giardia and noro virus therefore Continue Flagyl. Continue symptomatic treatment with IV fluid, antiemetic, PPI, probiotic. Possible discharge in 1-2 days if continued to improve. (2) Polycystic ovarian syndrome Current Visit: Yes Status: Acute Assessment and Plan: per hx. Follow-up with PCP outpatient . A1c 6.2 (3) Morbid obesity Current Visit: Yes Status: Acute Assessment and Plan: BMI 42. Lifestyle modifications encouraged. Supposed to be on metformin and lisinopril at home for her polycystic ovarian syndrome but not taking any medication. (4) Sepsis Current Visit: Yes Status: Acute Assessment and Plan: with fever, elevated WBC and tachycardia on arrival but normal lactic acid. Secondary to gastroenteritis possibly. Continue IV fluids. blood cx's no growth yet (5) UTI (urinary tract infection) Current Visit: Yes Status: Acute Assessment and Plan: On admission UA concerning for UTI. ABD CT with no acute finding. Urine culture not sent due to large number of epithelial cells. On my evaluation less likely UTI therefore they stopped Rocephin . Reviewed repeat UA with no significant findings. (6) DVT prophylaxis Current Visit: Yes Status: Acute Assessment and Plan: lovenox - Time Spent with Patient Total time spent is greater than 50% in coordination of care (as documented) at patient's floor/unit and/or counseling patient: 25 - 35 minutes Plan of Care Discussed with: patient Internal Medicine: Result - Labs CBC & Chem 7: 04/02/18 02:48 04/02/18 02:48 Labs: Short CBC 04/02/18 Range/Units 02:48 WBC 9.4 (4.3-11.1) K/mcL Hgb 10.9 L (11.5-15.4) g/dL Hct 35.8 (35.3-44.9) % Plt Count 320 (140-400) K/mcL BMP 04/02/18 02:48 Sodium 139 Potassium 3.7 Chloride 110 H Carbon Dioxide 24 BUN 6 Creatinine 0.55 L Glucose 106 H Calcium 8.1 L Urine 04/01/18 Range/Units 14:15 Urine Color Yellow (Yellow) Urine Clarity Clear (Clear) Urine pH 6.5 (5.0-8.0) pH Units Ur Specific [place] < 1.005 L (1.010-1.025) Urine Protein Negative (Neg-Trace) mg/dL Urine Glucose (UA) Normal (Normal) mg/dL Consult Discharge Plan - Plan Referrals: Semaj Bashir MD [Primary Care Provider] - (4) Sepsis Qualifiers: Sepsis type: sepsis due to unspecified organism Qualified Code(s): A41.9 - Sepsis, unspecified organism (5) UTI (urinary tract infection) Qualifiers: Urinary tract infection type: acute cystitis Hematuria presence: without hematuria Qualified Code(s): N30.00 - Acute cystitis without hematuria
[2018-04-03 03:55] LABS: Hematocrit 32.6 % (35.3-44.9); Hemoglobin 9.8 g/dL (11.5-15.4); Mean Corpuscular HGB Conc 30.1 g/dL (31.6-35.5); Mean Corpuscular Hemoglobin 22.7 pg (28.0-33.3); Mean Corpuscular Volume 75.6 fL (83.0-100.0); Mean Platelet Volume 9.8 fL (9.4-12.4); Platelet Count 307 K/mcL (140-400); Red Blood Count 4.31 M/mcL (3.82-4.97); Red Cell Distribution Width 15.9 % (11.5-14.5)
[2018-04-03 04:14] LABS: BUN/Creatinine Ratio 11 (6-26); Blood Urea Nitrogen 7 mg/dL (6-20); Carbon Dioxide 25 mEq/L (23-29); Chloride 108 mEq/L (98-107); Glucose 96 mg/dL (70-105); Osmolality,Calculated 288 (280-300); Potassium 3.3 mEq/L (3.5-5.1); Sodium 140 mEq/L (136-145); eGFR For Non-African Americans > 60 (> 60)
[2018-04-03] MEDS: *HR* Enoxaparin 40 MG/0.4 ML SYRINGE SQ SCH (05:43)
[2018-04-03] MEDS ORDERED: Potassium Chloride 20 MEQ, Lidocaine 1% 2 ML in D5% in Water 250 ML IVPB ONE (08:01)
[2018-04-03] MEDS: metroNIDAZOLE 500 MG TABLET PO SCH ×3 (09:19→20:22)
[2018-04-03] MEDS: Lactobacillus 1 EACH CAP.SPRINK PO SCH (09:19)
--- NOTE | 2018-04-03 13:16 | Internal Med Progress Note ---
Hospitalist Progress Note - Encounter Date of Encounter: 04/03/18 Time of Encounter: 13:14 - Subjective Interval History: Patient is still has watery runny diarrhea but frequency better. Patient had almost 10 bowel movement in last 24 hour. Review the lab with trending down hemoglobin on admission 13 and now 9.8, low potassium level. Denies nausea vom iting but has decreased appetite. Tolerating oral diet. Patient denies nausea vomiting abdominal pain at this time. . Patient had low-grade fever last night but no fever in the morning. Patient denies chills dizziness chest pain cough shortness of breath. Patient has irregular menstrual cycle and currently on her period. Patient generally has heavy periods but never got blood transfusion for this in the past. She is not aware about her baseline hemoglobin before admission. - Exam Vitals: Temp Pulse Resp BP Pulse Ox 98.3 F 78 18 115/75 96 04/03/18 11:37 04/03/18 11:37 04/03/18 11:37 04/03/18 11:37 04/03/18 11:37 Exam: .General appearance: No acute distress, A&O X 3, obese Eye exam: EOMI, PERRLA ENT exam: Moist oral mucosa Neck nontender, supple Respiratory exam: Clear to auscultation bilaterally Cardiovascular exam: Regular rate and rhythm, no systolic murmur Abdominal exam: Soft, nontender, nondistended, positive bowel sounds Extremities exam: No calf tenderness, no pedal edema Present: Skin-no rash, warm, dry, intact Neurological exam: CN II-XII intact, no focal deficits. No facial droop. Normal speech. - Assessment and Plan (1) Gastroenteritis Current Visit: Yes Status: Acute Assessment and Plan: Is still symptomatic with electrolyte imbalance. Continue oral liquid diet as decreased appetite and declining solid food. Continue Flagyl 500 mg by mouth 3 times a day. GI panel with Giardia and noro virus therefore Continue Flagyl. Continue symptomatic treatment with IV fluid, antiemetic, PPI, probiotic. Consulted GI specialist for persistent symptoms and also declining hemoglobin to rule out underlying GI pathology. (2) Polycystic ovarian syndrome Current Visit: Yes Status: Acute Assessment and Plan: per hx. Follow-up with PCP outpatient . A1c 6.2 (3) Morbid obesity Current Visit: Yes Status: Acute Assessment and Plan: BMI 42. Lifestyle modifications encouraged. Supposed to be on metformin and lisinopril at home for her polycystic ovarian syndrome but not taking any medication. (4) Sepsis Current Visit: Yes Status: Acute Assessment and Plan: with fever, elevated WBC and tachycardia on arrival but normal lactic acid. Secondary to gastroenteritis possibly. Continue IV fluids. blood cx's no growth yet (5) UTI (urinary tract infection) Current Visit: Yes Status: Acute Assessment and Plan: On admission UA concerning for UTI. ABD CT with no acute finding. Urine culture not sent due to large number of epithelial cells. On my evaluation less likely UTI therefore stopped Rocephin . Reviewed repeat UA with no significant findings. (6) Anemia Current Visit: Yes Status: Acute Assessment and Plan: Tingling in hemoglobin since admission. Unsure etiology. No active visible bleeding. Hemoccult test ordered. Patient also has heavy bleeding during her routine menstrual period. But no History of blood transfusion in the past. Consulted GI specialist. Will hold Lovenox and his start SCDs for DVT prophylaxis. Continue to monitor CBC. Patient is not symptomatic. (7) DVT prophylaxis Current Visit: Yes Status: Acute Assessment and Plan: SCDs. stopped Lovenox - Time Spent with Patient Total time spent is greater than 50% in coordination of care (as documented) at patient's floor/unit and/or counseling patient: 25 - 35 minutes Plan of Care Discussed with: patient Internal Medicine: Result - Labs CBC & Chem 7: 04/03/18 03:29 04/03/18 03:29 Labs: Short CBC 04/03/18 Range/Units 03:29 WBC 7.6 (4.3-11.1) K/mcL Hgb 9.8 L (11.5-15.4) g/dL Hct 32.6 L (35.3-44.9) % Plt Count 307 (140-400) K/mcL BMP 04/03/18 03:29 Sodium 140 Potassium 3.3 L Chloride 108 H Carbon Dioxide 25 BUN 7 Creatinine 0.63 Glucose 96 Calcium 8.0 L Consult Discharge Plan - Plan Referrals: Semaj Bashir MD [Primary Care Provider] - (Your appointment has been requested. Our offices will call you with an appointment time and date.) (4) Sepsis Qualifiers: Sepsis type: sepsis due to unspecified organism Qualified Code(s): A41.9 - Sepsis, unspecified organism (5) UTI (urinary tract infection) Qualifiers: Urinary tract infection type: acute cystitis Hematuria presence: without hematuria Qualified Code(s): N30.00 - Acute cystitis without hematuria
[2018-04-03] MEDS: Nicotine 14 MG PATCH.TD24 TD SCH (21:49)
[2018-04-03] MEDS: Acetaminophen 325 MG TABLET PO PRN (23:40)
[2018-04-04 04:47] LABS: Hematocrit 36.2 % (35.3-44.9); Hemoglobin 10.9 g/dL (11.5-15.4); Mean Corpuscular HGB Conc 30.1 g/dL (31.6-35.5); Mean Corpuscular Hemoglobin 22.8 pg (28.0-33.3); Mean Corpuscular Volume 75.7 fL (83.0-100.0); Mean Platelet Volume 9.7 fL (9.4-12.4); Platelet Count 342 K/mcL (140-400); Red Blood Count 4.78 M/mcL (3.82-4.97); Red Cell Distribution Width 15.7 % (11.5-14.5)
[2018-04-04 05:03] LABS: BUN/Creatinine Ratio 11 (6-26); Blood Urea Nitrogen 7 mg/dL (6-20); Calcium 8.4 mg/dL (8.6-10.3); Carbon Dioxide 27 mEq/L (23-29); Chloride 107 mEq/L (98-107); Glucose 100 mg/dL (70-105); Osmolality,Calculated 290 (280-300); Potassium 3.6 mEq/L (3.5-5.1); Sodium 141 mEq/L (136-145); eGFR For Non-African Americans > 60 (> 60)
[2018-04-04] MEDS: 0.9 % Sodium Chloride 1,000 ML IVC SCH ×2 (09:45→23:49)
[2018-04-04] MEDS: Lactobacillus 1 EACH CAP.SPRINK PO SCH (09:46)
[2018-04-04] MEDS: metroNIDAZOLE 500 MG TABLET PO SCH ×3 (09:46→20:46)
[2018-04-04] MEDS: Nicotine 14 MG PATCH.TD24 TD SCH (09:46)
[2018-04-04] MEDS: Ondansetron 4 MG/2 ML VIAL IVP PRN ×2 (09:47→14:46)
[2018-04-04 10:07] LABS: Hemoglobin 11.4 g/dL (11.5-15.4)
--- NOTE | 2018-04-04 11:03 | Infectious Disease Consult ---
Date of Encounter: 04/04/18 Time of Encounter: 10:30 Assessment and Plan (1) Sepsis Status: Acute Assessment and plan: Sepsis criteria met: febrile (103.2 F), tachycardia (HR 132), leukocytosis (16.7) --> does not meet sepsis criteria today Source of infection: unclear--suspect gastric and/or enteric source; doubt urinary tract Causative organism: unclear--possibly Giardia, Norovirus Febrile overnight at 102.6, otherwise no SIRS criteria met. Etiology of fever unclear at this time WBC count 16.7, 9.4, 9.4, 7.6 --> today 8 GI stool panel: giardia positive and norovirus positive Serology: C. diff toxin not detected; Non-reactive Hep A IgM Ab, Hep Bs Antigen, Hep B Core IgM Ab, and Hep C Ab screen Influenza types A/B antigens negative on nasal swab CXR 03/31 and 04/04: No acute cardiopulmonary disease. CT abdomen/pelvis 03/31: no acute findings within abdomen or pelvis; stable borderline mesenteric and retroperitoneal lymph nodes unchanged from previous Blood cultures: No growth to date x2 sets (03/31 and 04/04) UA on admission: nitrite negative, leukocyte esterase moderate, WBCs 15-30, few bacteria Repeat UA 04/01: nitrite negative, lekocyte esterase moderate, WBC within normal limits, no bacteria seen Lactic acid 1.8 BUN 7, Cr 0.62 today Suspect that sepsis may be more likely related to Norovirus given symptoms and giardia may be an incidental finding, however will treat. Etiology of fever overnight unclear. Flagyl 500 mg PO day 5 (was switched from BID to TID on 04/03) 1. Sepsis Recommendations - Continue Flagyl 500 mg PO TID - Supportive care - Droplet and contact precautions - Will repeat CT of abd/pelvis - Will also obtain labs to further evaluate for fever including amylase, lipase, HIV screen - Blood cultures redrawn today. Will continue to monitor for growth 2. Gastroenteritis Greater degree of emesis compared to diarrhea, more suggestive of norovirus than giardia Onset so soon after eating suggests possibility of toxin already present in her food or drink 3. Giardiasis Possibly an incidental finding 4. Norovirus 5. HTN 6. GERD 7. Polycystic ovarian syndrome 8. Morbid obesity 9. Tobacco abuse Qualifiers: Sepsis type: sepsis due to unspecified organism Qualified Code(s): A41.9 - Sepsis, unspecified organism (2) Gastroenteritis Status: Acute (3) Giardiasis Status: Acute (4) Norovirus Status: Acute (5) Hypertension Status: Acute Qualifiers: Hypertension type: unspecified Qualified Code(s): I10 - Essential (primary) hypertension (6) GERD (gastroesophageal reflux disease) Status: Acute Qualifiers: Esophagitis presence: esophagitis presence not specified Qualified Code(s): K21.9 - Gastro-esophageal reflux disease without esophagitis (7) Polycystic ovarian syndrome Status: Acute (8) Morbid obesity Status: Acute (9) Tobacco abuse Status: Acute Infectious Disease HPI - Data of Consult Consult date: 04/04/18 Requesting Physician: Christopher Robles Primary Care Provider: Semaj Bashir MD - Consult Narrative Reason for consult: severe giardiasis History of present illness: Ms. Dos Santos is a 22 year old female admitted 03/31/18 for acute onset nausea, vomiting, diarrhea. Infectious disease consulted 04/04/18 for severe giardiasis. The patient is a poor historian and has given conflicting reports and details amongst different interviewers. She is not very forthcoming regarding past medical hx, social hx, or in providing answers related to history of present illness. PMH: PCOS, GERD, HTN HPI: Patient gives conflicting reports and details amongst interviewers, my interview with her is as follows. Patient states she went black Tuesday shopping around midnight with friends. She presented with complaints of nausea, vomiting, diarrhea since then. She was unable to provide number of episodes of emesis or diarrhea. Emesis was nonbloody no coffee-ground appearance, diarrhea nonbloody, without mucus. No exacerbating or relieving factors. She reports heard nausea has improved and that she has not vomited since admission, her diarrhea has improved and she states she only has diarrhea every 4-5 hours now. They ate [place] food early Tuesday morning and her friends ate the same food but didn't have any symptoms. She reported having a different drink from the soda fountain. The patient denies sick contacts or recent travel. She reports a feeling of general fatigue prior to onset of vomiting and diarrhea. Denies feeling febrile, diaphoresis, chills, sinus pressure, sore throat, chest pain, shortness breath, dysuria, hematuria, pyuria, abnormal vaginal discharge. Admits abdominal pain and describes as both sharp and burning that is diffuse. Patient has been unable to tolerate by mouth intake. Hospital course: In the emergency department she intractable nausea and vomiting and was noted to be febrile with max temperature 103.2 F and tachycardic with HR 132. Sepsis criteria was met after initial lab work revealed WBC 16.7 with 88.4% segmented neutrophils (no bands). Lactic acid 1.8. Metabolic panel showed elevated glucose but was otherwise unremarkable. Urinalysis showed negative nitrites, high number of WBCs, moderate leukocyte esterase, many squamous epithelial cells, and few bacteria--it was not sent for culture. Urine test negative. Nasal influenza swab was negative. Chest x-ray negative for acute cardiopulmonary processes. CT abdomen/pelvis showed no acute findings within the abdomen or pelvis; stable borderline mesenteric and retroperitoneal lymph nodes unchanged compared to 06/24/16. In the emergency department she received Tylenol, IV fluids, and 1 dose of Rocephin. Patient was seen and examined at bedside this morning, her mother was present in the room. She feels better today compared to admission. Overnight she was febrile but she states she felt fine. Her diarrhea has improved as it is less frequent. She states she has not been nauseous or vomitted since admission. Her abdominal pain has resolved as well. CC: Christopher Robles Past Med Surg Social Fam HX - Past Medical History Medical history: GERD, hypertension Psychiatric history: ADHD - Past Surgical History Additional surgical history: right ankle. cyst removed from back - Social History Smoking Status: Never smoker Smokeless Tobacco Status: No Alcohol use: none Drug use: none - Family History Father History Unknown: Yes Living Status: Still Living Mother History Unknown: Yes Living Status: Still Living Infectious Disease-CN:Meds RX: No Known Home Drugs 03/31/18 [History] Allergy/AdvReac Type Severity Reaction Status Date / Time No Known Allergies Allergy Verified 12/19/15 22:18 - Constitutional Constitutional: Absent: chills, excessive sweating, fatigue, fever(s), night sweats - EENT Nose, mouth and throat: Absent: dysphagia, facial pain, hoarseness, nasal congestion, nasal discharge, odynophagia, post-nasal drip, sinus pain, sinus pressure, sore throat - Cardiovascular Cardiovascular: Absent: chest pain, edema, palpitations, rapid heart rate - Respiratory Respiratory: Present: cough (worse at night, not above her baseline). Absent: dyspnea, wheezing - Gastrointestinal Gastrointestinal: Present: abdominal pain, diarrhea, loose stools, nausea, vomiting. Absent: coffee ground emesis, cramping, dysphagia, melena, odynophagia - Genitourinary Genitourinary: Absent: difficulty voiding, dysuria, flank pain, hematuria, urinary frequency, vaginal discharge Exam - Constitutional Vitals: Temp Pulse Resp BP Pulse Ox 97.9 F 72 16 132/86 96 04/04/18 06:44 04/04/18 06:44 04/04/18 06:44 04/04/18 10:13 04/04/18 10:13 Exam: General: vital signs noted, no acute distress, non-toxic appearance, AAO x3 Head: normocephalic, atraumatic Eyes: EOMI, PERRL, sclera anicteric ENT: moist mucous membranes Neck: supple, trachea midline Cardio: RRR; no murmurs, gallops, rubs; + S1/S2; no edema Chest: symmetric chest rise Pulm: CTAB, no wheezes/rhonchi/rales, no respiratory distress, Abd: soft, nontender, nondistended, normal bowel sounds, no rebound/rigidity/guarding Neuro: CN II-XII grossly intact; no focal deficits, moves all extremities spontaneously; mentating well Ext: no lower extremity edema; 2+/4 pedal pulses equal bilaterally MSK: no visible deformities Psych: normal mood and affect, cooperative, answers questions appropriately Skin: pink, warm, dry, intact; no rash Infectious Disease CN: Results - Labs CBC & Chem 7: 04/05/18 03:57 04/05/18 03:57 Cultures: Cultures 04/04/18 09:44 Blood Culture - Preliminary Peripheral Venipuncture Culture is incubating and being continuously monitored for growth. Final report to follow. 04/04/18 09:49 Blood Culture - Preliminary Peripheral Venipuncture Culture is incubating and being continuously monitored for growth. Final report to follow. 03/31/18 12:28 Blood Culture - Preliminary Peripheral Venipuncture Culture is incubating and being continuously monitored for growth. Final report to follow. 03/31/18 08:09 Blood Culture - Preliminary Peripheral Venipuncture Culture is incubating and being continuously monitored for growth. Final report to follow. 03/31/18 08:17 Influenza Types A,B Antigen - Final Nasopharyngeal Serology: Serology 04/03/18 04/01/18 03/31/18 Range/Units 20:26 14:15 18:02 Ur Specimen Adequacy Urine Color Yellow (Yellow) Urine Clarity Clear (Clear) Urine pH 6.5 (5.0-8.0) pH Units Ur Specific [place] < 1.005 L (1.010-1.025) Urine Protein Negative (Neg-Trace) mg/dL Urine Glucose (UA) Normal (Normal) mg/dL Urine Ketones Negative (Negative) mg/dL Urine Blood Moderate H (Negative) Urine Nitrite Negative (Negative) Urine Bilirubin Negative (Negative) Urine Urobilinogen Normal (Normal) mg/dL Ur Leukocyte Esterase Moderate H (Negative) Urine Microscopic RBC (0-3) per hpf Urine Microscopic WBC 0-3 (0-3) per hpf Ur Squamous Epith Cells Many H (None-Few) per lpf Urine Bacteria None Seen (None-Few) per hpf Hyaline Casts None Seen (None-Few) per lpf Ur Culture Indicated? (NO) Urine Test (Negative) Stool Occult Blood Positive A (Negative) Stl C. cayetanensis PCR Not detected (Not detect) Stool Rotavirus A PCR Not detected (Not detect) Stl Adenov F 40/41 PCR Not detected (Not detect) Stool Astrovirus (PCR) Not detected (Not detect) Stool Campylobacter PCR Not detected (Not detect) Stool Cryptosporidium PCR Not detected (Not detect) Stl Sh Tox Pr E STEC PCR Not detected (Not detect) Stool E coli O157 PCR Not detected (Not detect) Stl Enterotoxigenic E PCR Not detected (Not detect) Stool EPEC (PCR) Not detected (Not detect) Stool EAEC (PCR) Not detected (Not detect) Stl E. histolytica PCR Not detected (Not detect) Stool Giardia Lamblia PCR DETECTED A* (Not detect) Stool Salmonella PCR Not detected (Not detect) Stool Sapovirus (PCR) Not detected (Not detect) Stl P. shigelloides PCR Not detected (Not detect) Stl Shigella/EIEC PCR Not detected (Not detect) St Y.enterocolitica PCR Not detected (Not detect) Stool Vibrio (PCR) Not detected (Not detect) Stl Vibrio cholerae PCR Not detected (Not detect) Stl Norovirus GI/GII PCR DETECTED A (Not detect) Stl GI Panel (PCR) Com See below C.diff Toxin Gene ([place]ADLEY) Not detected (Not detect) Hepatitis A IgM Ab (Nonreactive) Hep Bs Antigen (Nonreactive) Hep B Core IgM Ab (Nonreactive) Hepatitis C Ab Screen (Nonreactive) 03/31/18 03/31/18 03/31/18 Range/Units 08:13 08:13 08:09 Ur Specimen Adequacy See below A Urine Color Dark Yellow (Yellow) Urine Clarity Turbid A (Clear) Urine pH 5.0 (5.0-8.0) pH Units Ur Specific [place] 1.020 (1.010-1.025) Urine Protein 100 H (Neg-Trace) mg/dL Urine Glucose (UA) Normal (Normal) mg/dL Urine Ketones Trace H (Negative) mg/dL Urine Blood Large H (Negative) Urine Nitrite Negative (Negative) Urine Bilirubin Moderate H (Negative) Urine Urobilinogen Normal (Normal) mg/dL Ur Leukocyte Esterase Moderate H (Negative) Urine Microscopic RBC TNTC H (0-3) per hpf Urine Microscopic WBC 15-30 H (0-3) per hpf Ur Squamous Epith Cells Many H (None-Few) per lpf Urine Bacteria Few (None-Few) per hpf Hyaline Casts None Seen (None-Few) per lpf Ur Culture Indicated? NO. A (NO) Urine Test Negative (Negative) Stool Occult Blood (Negative) Stl C. cayetanensis PCR (Not detect) Stool Rotavirus A PCR (Not detect) Stl Adenov F 40/41 PCR (Not detect) Stool Astrovirus (PCR) (Not detect) Stool Campylobacter PCR (Not detect) Stool Cryptosporidium PCR (Not detect) Stl Sh Tox Pr E STEC PCR (Not detect) Stool E coli O157 PCR (Not detect) Stl Enterotoxigenic E PCR (Not detect) Stool EPEC (PCR) (Not detect) Stool EAEC (PCR) (Not detect) Stl E. histolytica PCR (Not detect) Stool Giardia Lamblia PCR (Not detect) Stool Salmonella PCR (Not detect) Stool Sapovirus (PCR) (Not detect) Stl P. shigelloides PCR (Not detect) Stl Shigella/EIEC PCR (Not detect) St Y.enterocolitica PCR (Not detect) Stool Vibrio (PCR) (Not detect) Stl Vibrio cholerae PCR (Not detect) Stl Norovirus GI/GII PCR (Not detect) Stl GI Panel (PCR) Com C.diff Toxin Gene (HADLEY) (Not detect) Hepatitis A IgM Ab Nonreactive (Nonreactive) Hep Bs Antigen Nonreactive (Nonreactive) Hep B Core IgM Ab Nonreactive (Nonreactive) Hepatitis C Ab Screen Nonreactive (Nonreactive) Consult Discharge Plan - Plan Referrals: Semaj Bashir MD [Primary Care Provider] - 04/11/18 1:00 pm () - Attending Attestation .I examined this patient and my medical decision-making was reviewed with the Resident Physician. I agree with the documented findings, disposition and treatment plan as described except to the extent set forth below. 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 Patient went out shopping on night and by Tuesday morning she was having severe nausea vomiting intractable vomiting get abdominal pain that was nonspecific. Patient denied any fevers or chills. Denied any URI symptoms. No sinus pressure no runny nose no sore throat no earache. Patient had some cough stated but denied any sputum production or hemoptysis. No shortness of breath or dyspnea on exertion. Patient denied any urinary symptoms. Denied any rash. Denies any joint pain or effusion. On further questioning patient have city water. She does not have a septic tank and has normal sewers as well. Patient denied ever traveling outside of the . She said she has been to [place] and to [place] in the last 5 years. There is no animals where she lives. Patient denies any sick contacts. All the people she lives with she tells me nobody had similar symptoms that she had one friend that she was having an earache at this point we will treat the gastroenteritis which is likely due to the viral gastroenteritis. I probably believe that the Giardia is a incidental finding. I will notify infection control to see if the health department need to be notified. 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
--- NOTE | 2018-04-04 12:24 | Gastroenterology Consult Note ---
<ArangoRoldan reyes Vangie - Last Filed: 04/04/18 12:21> Date of Encounter: 04/04/18 Time of Encounter: 10:25 - Assessment and plan (1) Anemia Current Visit: Yes Status: Acute Assessment and plan: Likely secondary to heavy menstrual bleeding. No bloody stool. Continue to monitor CBC and transfuse PRBC as needed. Check iron panel, ferritin, and celiac panel. No indication for EGD or colonoscopy at this time. Qualifiers: Anemia type: unspecified type Qualified Code(s): D64.9 - Anemia, unspecified (2) Giardiasis Current Visit: Yes Status: Acute Assessment and plan: Treatment per ID recommendations. (3) Norovirus Current Visit: Yes Status: Acute Assessment and plan: Symptomatic treatment. (4) Morbid obesity Current Visit: Yes Status: Acute - Time Spent With Patient Total time spent is greater than 50% in coordination of care (as documented) at patient's floor/unit and/or counseling patient: GI History of Present Illness - Data of Consult Patient: new to practice Consult date: 04/04/18 Requesting Physician: Christopher Robles - Consult Narrative Reason for consult: Giardia, anemia History of present illness: Ms. Dos Santos is a 22 year old female with PMHx of GERD, HTN, heavy menstrual bleeding who presented to ED with complaints of abdominal pain, nausea, vomiting, and diarrhea. Patient states she was out shopping on Tuesday and [address] and had [place] food. She began having abdominal pain followed by vomiting and watery diarrhea. Stool studies positive for Giardia and Norovirus. She was started on Flagyl for the Giardia. Hemoglobin was 13.4 on admission and dropped to 9.8 yesterday (04/03), and today Hgb 10.9. She denies hematemesis, coffee-ground emesis, melena, or hematochezia. CT A/P with no acute findings. Procedures: None NSAIDs: None Anticoagulation: None Past Med Surg Social Fam HX - Past Medical History Medical history: GERD, hypertension Psychiatric history: ADHD - Past Surgical History Additional surgical history: right ankle. cyst removed from back - Social History Smoking Status: Never smoker Smokeless Tobacco Status: No Alcohol use: none Drug use: none - Family History Mother History Unknown: Yes Living Status: Still Living Father History Unknown: Yes Living Status: Still Living - Gastrointestinal Gastrointestinal: Present: as per HPI - Constitutional Constitutional: as per HPI - EENT Eyes: as per HPI Ears: Present: as per HPI Nose, mouth and throat: Present: as per HPI - Cardiovascular Cardiovascular ROS: Present: as per HPI - Respiratory Respiratory IM: Present: as per HPI - Genitourinary Genitourinary: Absent: change in color, Urinary frequency - Neurological ROS Neurological GI: Present: as per HPI - Hematologic/Lymphatic Hematologic/Lymphatic pediatric: Present: as per HPI - Musculoskeletal Musculoskeletal ROS GI: Present: as per HPI - Integumentary Integumentary GI: Present: as per HPI - Psychiatric ROS Psychiatric GI: Present: as per HPI - Endocrine Endocrine IM: Present: as per HPI - Constitutional Vitals: Temp Pulse Resp BP Pulse Ox 98.6 F 81 16 112/74 96 04/04/18 11:59 04/04/18 11:59 04/04/18 11:59 04/04/18 11:59 04/04/18 11:59 General appearance: Present: cooperative, A&O X 3, no acute distress, answers questions appropriately - Head Head exam: Present: atraumatic, normocephalic - Eye Eye exam: Present: normal appearance, sclera anicteric - ENT ENT exam: Present: mucous membranes moist - Neck Neck exam general surgery: Present: normal inspection, trachea midline - Respiratory Respiratory exam: Present: CTAB. Absent: rales, rhonchi - Cardiovascular Cardiovascular exam: Present: RRR, +S1, +S2 - GI/Abdominal GI/Abdominal exam: Present: normal bowel sounds, soft, no peritoneal signs. Absent: distended, firm, guarding, tenderness Additional comments: obese - Rectal Rectal exam: Present: deferred - Extremities Exam Extremities exam: Present: warm - Neurological Exam Neurological exam: Present: no focal deficits - Psychiatric Psychiatric exam: Present: normal affect, normal mood - Skin Skin exam: Present: dry, intact, normal color, warm Results - Labs CBC & Chem 7: 04/04/18 09:49 04/04/18 04:31 Labs: Last Result Calcium 8.4 mg/dL (8.6-10.3) L 04/04/18 04:31 Stool Occult Blood Positive (Negative) A 04/03/18 20:26 Entire Visit Hgb 11.4 g/dL (11.5-15.4) L 04/04/18 09:49 Hct 38.0 % (35.3-44.9) 04/04/18 09:49 Total Bilirubin 0.4 mg/dL (0.3-1.0) 03/31/18 08:09 AST 26 Units/L (13-39) 03/31/18 08:09 ALT 24 Units/L (7-52) 03/31/18 08:09 Lipase 4 Units/L (11-82) L 03/31/18 08:09 - Impressions Impressions Chest X-Ray 04/04/18 08:15 IMPRESSION: No acute cardiopulmonary disease. D/ / Stephen Brandt MD / Stephen Brandt MD Interpreting Provider: Stephen Brandt MD Consult Discharge Plan - Plan Referrals: Semaj Bashir MD [Primary Care Provider] - 04/11/18 1:00 pm () <Erica Nolan - Last Filed: 04/04/18 17:07> Date of Encounter: 04/04/18 Time of Encounter: 15:00 - Time Spent With Patient Total time spent is greater than 50% in coordination of care (as documented) at patient's floor/unit and/or counseling patient: GI History of Present Illness - Data of Consult Requesting Physician: Christopher Robles - Consult Narrative History of present illness: Ms. Dos Santos is a 22 year old female - Constitutional Vitals: Temp Pulse Resp BP Pulse Ox 98.5 F 81 16 127/81 96 04/04/18 16:54 04/04/18 16:54 04/04/18 16:54 04/04/18 16:54 04/04/18 16:54 Results - Labs CBC & Chem 7: 04/04/18 15:46 04/04/18 04:31 Labs: Last Result Calcium 8.4 mg/dL (8.6-10.3) L 04/04/18 04:31 Iron 20 mcg/dL (50-170) L 04/04/18 12:50 % Saturation 5 % (15-50) L 04/04/18 12:50 Transferrin 268 mg/dL (203-362) 04/04/18 12:50 Ferritin 27 ng/mL (10-120) 04/04/18 12:50 Stool Occult Blood Positive (Negative) A 04/03/18 20:26 Entire Visit Hgb 10.7 g/dL (11.5-15.4) L 04/04/18 15:46 Hct 35.1 % (35.3-44.9) L 04/04/18 15:46 Ferritin 27 ng/mL (10-120) 04/04/18 12:50 Total Bilirubin 0.4 mg/dL (0.3-1.0) 03/31/18 08:09 AST 26 Units/L (13-39) 03/31/18 08:09 ALT 24 Units/L (7-52) 03/31/18 08:09 Amylase 22 Units/L (29-103) L 04/04/18 15:46 Lipase 13 Units/L (11-82) 04/04/18 15:46 - Impressions Impressions Chest X-Ray 04/04/18 08:15 IMPRESSION: No acute cardiopulmonary disease. D/ / Stephen Brandt MD / Stephen Brandt MD Interpreting Provider: Stephen Brandt MD - Attending Attestation I have personally performed a face to face evaluation on this patient. I have reviewed and agree with the care plan. History and Exam by me shows: Patient seen. admitted with of complaints of abdominal pain, nausea, vomiting and diarrhea. Found to have Giardia and also Norvo virus in her stool. His been seen by infectious disease and currently she is feeling better abdominal pain has resolved and diarrhea has also improved. Patient was noticed to be anemic but denies any blood in her stool does complain of heavy menses. Examination abdomen is soft. Assessment/Plan:: Giarda and Norva infection of the stool. Treatment as per infectious disease Anemia: Patient with iron deficiency anemia most probably due to her irregular menses recommend oral iron supplement no need for endoscopy
--- NOTE | 2018-04-04 13:26 | Internal Med Progress Note ---
Hospitalist Progress Note - Encounter Date of Encounter: 04/04/18 Time of Encounter: 13:22 - Subjective Interval History: Patient spiked temperature 102 with low blood pressure less than 100 x 60 in a sterile has watery runny diarrhea almost 6-8 and last 24-hour period complained of nausea. Her mother brought food from outside and patient is started nausea after eating that. Review the lab with better hemoglobin and normal potassium level today. Patient denies dizziness chest pain cough shortness of breath. Patient has irregular menstrual cycle and currently on her period. Patient generally has heavy periods but never got blood transfusion for this in the past. She is not aware about her baseline hemoglobin before admission. - Exam Vitals: Temp Pulse Resp BP Pulse Ox 98.6 F 81 16 112/74 96 04/04/18 11:59 04/04/18 11:59 04/04/18 11:59 04/04/18 11:59 04/04/18 11:59 Exam: .General appearance: No acute distress, A&O X 3, obese. Mother at bedside Eye exam: EOMI, PERRLA ENT exam: Slight dry oral mucosa Neck nontender, supple Respiratory exam: Clear to auscultation bilaterally Cardiovascular exam: Regular rate and rhythm, no systolic murmur Abdominal exam: Soft, nontender, nondistended, positive bowel sounds Extremities exam: No calf tenderness, no pedal edema Present: Skin-no rash, warm, dry, intact Neurological exam: CN II-XII intact, no focal deficits. No facial droop. Normal speech. - Assessment and Plan (1) Fever Current Visit: Yes Status: Acute Assessment and Plan: Jong temperature 102 with low blood pressure. Blood culture, chest x-ray, urine analysis ordered and consulted ID specialist is patient has persistent GI symptoms with new a spike in temperature with low blood pressure to rule out underlying and other etiology. Continue to monitor (2) Gastroenteritis Current Visit: Yes Status: Acute Assessment and Plan: Is still symptomatic though less frequency. Continue oral liquid diet as decreased appetite and declining solid food. Continue Flagyl 500 mg by mouth 3 times a day. GI panel with Giardia and noro virus therefore Continue Flagyl. Continue symptomatic treatment with IV fluid, antiemetic, PPI, probiotic. Consulted GI specialist for persistent symptoms and also declining hemoglobin to rule out underlying GI pathology and he recommended continue medical management as he thing secondary to heavy bleeding and also order iron study and celiac panel. (3) Polycystic ovarian syndrome Current Visit: Yes Status: Acute Assessment and Plan: per hx. Follow-up with PCP outpatient . A1c 6.2 (4) Morbid obesity Current Visit: Yes Status: Acute Assessment and Plan: BMI 42. Lifestyle modifications encouraged. Supposed to be on metformin and lisinopril at home for her polycystic ovarian syndrome but not taking any medication. (5) Sepsis Current Visit: Yes Status: Acute Assessment and Plan: with fever, elevated WBC and tachycardia on arrival but normal lactic acid. Secondary to gastroenteritis possibly. blood cx's no growth yet. As patient had low blood pressure today therefore IV fluid normal saline 100 mL per hour started (6) UTI (urinary tract infection) Current Visit: Yes Status: Acute Assessment and Plan: On admission UA concerning for UTI. ABD CT with no acute finding. Urine culture not sent due to large number of epithelial cells. On my evaluation less likely UTI therefore stopped Rocephin . Reviewed repeat UA with no significant findings. (7) Anemia Current Visit: Yes Status: Acute Assessment and Plan: Trending up hemoglobin now but has been trending down hemoglobin since admission. Hemoglobin 13 on admission and went down to 9.8 and lowest. Hemoccult test positive that could also be due to being her on menstrual cycle. GI on board and follow his recommendation. Patient also has heavy bleeding during her routine menstrual period. But no History of blood transfusion in the past. Consulted GI specialist. Will hold Lovenox and his start SCDs for DVT prophylaxis. Continue to monitor CBC. Patient is not symptomatic. (8) DVT prophylaxis Current Visit: Yes Status: Acute Assessment and Plan: SCDs. stopped Lovenox - Time Spent with Patient Total time spent is greater than 50% in coordination of care (as documented) at patient's floor/unit and/or counseling patient: 25 - 35 minutes Plan of Care Discussed with: patient (Discuss plan of care with mother and nursing staff.) Internal Medicine: Result - Labs CBC & Chem 7: 04/04/18 09:49 04/04/18 04:31 Labs: Short CBC 04/04/18 04/04/18 Range/Units 04:31 09:49 WBC 8.0 (4.3-11.1) K/mcL Hgb 10.9 L 11.4 L (11.5-15.4) g/dL Hct 36.2 38.0 (35.3-44.9) % Plt Count 342 (140-400) K/mcL BMP 04/04/18 04:31 Sodium 141 Potassium 3.6 Chloride 107 Carbon Dioxide 27 BUN 7 Creatinine 0.62 Glucose 100 Calcium 8.4 L - Impressions Impressions Chest X-Ray 04/04/18 08:15 IMPRESSION: No acute cardiopulmonary disease. D/ / Stephen Brandt MD / Stephen Brandt MD Interpreting Provider: Stephen Brandt MD Consult Discharge Plan - Plan Referrals: Semaj Bashir MD [Primary Care Provider] - 04/11/18 1:00 pm () _ (5) Sepsis Qualifiers: Sepsis type: sepsis due to unspecified organism Qualified Code(s): A41.9 - Sepsis, unspecified organism (6) UTI (urinary tract infection) Qualifiers: Urinary tract infection type: acute cystitis Hematuria presence: without hematuria Qualified Code(s): N30.00 - Acute cystitis without hematuria (7) Anemia Qualifiers: Anemia type: unspecified type Qualified Code(s): D64.9 - Anemia, unspecified
[2018-04-04 13:54] LABS: % Iron Saturation 5 % (15-50); Iron 20 mcg/dL (50-170); Transferrin 268 mg/dL (203-362)
[2018-04-04 14:06] LABS: Ferritin 27 ng/mL (10-120)
[2018-04-04] MEDS ORDERED: Isovue-370 500 ML INFUS..BTL IV ONE (15:20)
[2018-04-04 16:10] LABS: Hematocrit 35.1 % (35.3-44.9); Hemoglobin 10.7 g/dL (11.5-15.4)
[2018-04-04 16:28] LABS: Amylase 22 Units/L (29-103); Lipase 13 Units/L (11-82)
[2018-04-04 22:10] LABS: Hematocrit 35.3 % (35.3-44.9); Hemoglobin 10.8 g/dL (11.5-15.4)
[2018-04-05 04:38] LABS: Hematocrit 32.7 % (35.3-44.9); Hemoglobin 10.1 g/dL (11.5-15.4); Mean Corpuscular HGB Conc 30.9 g/dL (31.6-35.5); Mean Corpuscular Hemoglobin 22.6 pg (28.0-33.3); Mean Corpuscular Volume 73.3 fL (83.0-100.0); Mean Platelet Volume 9.8 fL (9.4-12.4); Platelet Count 339 K/mcL (140-400); Red Blood Count 4.46 M/mcL (3.82-4.97); Red Cell Distribution Width 15.8 % (11.5-14.5)
[2018-04-05 04:55] LABS: BUN/Creatinine Ratio 12 (6-26); Blood Urea Nitrogen 6 mg/dL (6-20); Carbon Dioxide 25 mEq/L (23-29); Chloride 107 mEq/L (98-107); Glucose 86 mg/dL (70-105); Osmolality,Calculated 287 (280-300); Potassium 3.4 mEq/L (3.5-5.1); Sodium 140 mEq/L (136-145); eGFR For Non-African Americans > 60 (> 60)
[2018-04-05] MEDS ORDERED: Potassium Chloride 20 MEQ, Lidocaine 1% 2 ML in D5% in Water 250 ML IVPB ONE (08:15)
--- NOTE | 2018-04-05 08:47 | Infectious Disease Progress No ---
Date of Encounter: 04/05/18 Time of Encounter: 08:47 - Assessment and Plan (1) Sepsis Status: Acute Sepsis criteria met on admission: febrile (103.2 F), tachycardia (HR 132), leukocytosis (16.7) --> does not meet sepsis criteria today Source of infection: unclear--suspect gastric and/or enteric source; doubt urinary tract Causative organism: most likely d/t Norovirus Febrile overnight (no other SIRS criteria met) at 102.6 on 04/03; etiology of fever unclear--> afebrile since 04/04 WBC count 16.7, 9.4, 9.4, 7.6, 8 --> today 9.4 Lactic acid 1.8 Lipase: 4--> 13 and Amylase: 22 Blood cultures: No growth to date x2 sets (03/31 and 04/04) GI stool panel: giardia positive and norovirus positive UA on admission: nitrite negative, leukocyte esterase moderate, WBCs 15-30, few bacteria Repeat UA 04/01: nitrite negative, lekocyte esterase moderate, WBC within normal limits, no bacteria seen Serology: C. diff toxin not detected; Non-reactive Hep A IgM Ab, Hep Bs Antigen, Hep B Core IgM Ab, and Hep C Ab screen Influenza types A/B antigens negative on nasal swab CXR 03/31: No acute cardiopulmonary disease. CT abdomen/pelvis 03/31 and 04/04: no acute findings within abdomen or pelvis; stable mesenteric lymphadenopathy CT chest 04/04: no significant findings BUN 6, Cr 0.52 today Flagyl 500 mg PO day 6 (was switched from BID to TID on 04/03) Suspect that sepsis may be more likely related to Norovirus given symptoms. Giardia may be incidental finding, however will treat. Etiology of 04/03 fever unclear, but has been afebrile since. Denies urinary symptoms. No reported bowel movements today. Vanesa Pringle ([facility]) contacted re: whether or not Giardia and Norovirus need to be reported to local health department. Please refer to [facility] note for complete details. Per machine design engineer Kaila Solorio, Norovirus does not require reporting, but Giardia must be reported and health department would be notified by her if not already done so. 1. Sepsis Recommendations - From ID standpoint, patient may be discharged to home with PO tinidazole 2 grams x1 dose - Stop PO flagyl 500 mg TID See above note re: reporting to health department - Supportive care - HIV screen pending - Blood cultures will be monitored for growth 2. Gastroenteritis Greater degree of emesis compared to diarrhea, more suggestive of norovirus than giardia Onset so soon after eating suggests possibility of toxin already present in her food or drink Treatment as above 3. Giardiasis Antibiotics as above See above note re: reporting to health department 4. Norovirus Supportive care See above note re: reporting to health department 5. HTN 6. GERD 7. Polycystic ovarian syndrome 8. Morbid obesity 9. Tobacco abuse Qualifiers: Sepsis type: sepsis due to unspecified organism Qualified Code(s): A41.9 - Sepsis, unspecified organism (2) Gastroenteritis Status: Acute (3) Giardiasis Status: Acute See above note re: reporting to health department (4) Norovirus Status: Acute See above note re: reporting to health department (5) Hypertension Status: Acute Qualifiers: Hypertension type: unspecified Qualified Code(s): I10 - Essential (primary) hypertension (6) GERD (gastroesophageal reflux disease) Status: Acute Qualifiers: Esophagitis presence: esophagitis presence not specified Qualified Code(s): K21.9 - Gastro-esophageal reflux disease without esophagitis (7) Polycystic ovarian syndrome Status: Acute (8) Morbid obesity Status: Acute (9) Tobacco abuse Status: Acute - Subjective Interval history: Seen and examined this morning at bedside, I was accompanied by medical student also on ID service. On entering the room patient appeared comfortable and was sleeping, no visitors were present in the room. She reports feeling well this morning with no overnight events. She states she had 2 or 3 loose bowel movements yesterday, an improvement compared to admission. No bowel movement yet today at time of my exam. Denies further nausea or vomiting. On repeat questioning patient denies associated sinus pressure or pain, nasal congestion or rhinitis, itchy or watery eyes, ear pain, postnasal drip, sore throat, difficulty or pain with urination, skin rashes or lesions. She confirms the cough reported to me yesterday and states it has been present for about 1 month, is worse at night, and is productive of a small amount sputum she describes as mucus. She admits to marijuana use. She denies past or present history of other recre ational drugs, IV drug use, or snorting drugs like cocaine. She denies history of diagnosis with sexually transmitted infections including chlamydia, gonorrhea, trichomoniasis as examples. She reports she is not currently sexually active and that her last sexual contact of any sort was in April of last year. Infect Dis PN-Objective Data - Labs CBC & Chem 7: 04/05/18 03:57 04/05/18 03:57 Labs: Laboratory Results - last 24 hr 04/04/18 04/04/18 04/04/18 09:49 12:50 15:46 WBC RBC Hgb 11.4 L 10.7 L Hct 38.0 35.1 L MCV MCH MCHC RDW Plt Count MPV Sodium Potassium Chloride Carbon Dioxide BUN Creatinine Est GFR ( Amer) Est GFR (Non-Af Amer) BUN/Creatinine Ratio Glucose Calculated Osmolality Calcium Iron 20 L % Saturation 5 L Transferrin 268 Ferritin 27 Amylase Lipase 04/04/18 04/04/18 04/05/18 15:46 21:57 03:57 WBC 9.4 RBC 4.46 Hgb 10.8 L 10.1 L Hct 35.3 32.7 L MCV 73.3 L MCH 22.6 L MCHC 30.9 L RDW 15.8 H Plt Count 339 MPV 9.8 Sodium Potassium Chloride Carbon Dioxide BUN Creatinine Est GFR ( Amer) Est GFR (Non-Af Amer) BUN/Creatinine Ratio Glucose Calculated Osmolality Calcium Iron % Saturation Transferrin Ferritin Amylase 22 L Lipase 13 04/05/18 03:57 WBC RBC Hgb Hct MCV MCH MCHC RDW Plt Count MPV Sodium 140 Potassium 3.4 L Chloride 107 Carbon Dioxide 25 BUN 6 Creatinine 0.52 L Est GFR ( Amer) > 60 Est GFR (Non-Af Amer) > 60 BUN/Creatinine Ratio 12 Glucose 86 Calculated Osmolality 287 Calcium 8.0 L Iron % Saturation Transferrin Ferritin Amylase Lipase Cultures: Cultures 04/04/18 09:44 Blood Culture - Preliminary Peripheral Venipuncture Culture is incubating and being continuously monitored for growth. Final report to follow. 04/04/18 09:49 Blood Culture - Preliminary Peripheral Venipuncture Culture is incubating and being continuously monitored for growth. Final report to follow. 03/31/18 12:28 Blood Culture - Preliminary Peripheral Venipuncture Culture is incubating and being continuously monitored for growth. Final report to follow. 03/31/18 08:09 Blood Culture - Preliminary Peripheral Venipuncture Culture is incubating and being continuously monitored for growth. Final report to follow. 03/31/18 08:17 Influenza Types A,B Antigen - Final Nasopharyngeal Serology 04/03/18 04/01/18 03/31/18 Range/Units 20:26 14:15 18:02 Ur Specimen Adequacy Urine Color Yellow (Yellow) Urine Clarity Clear (Clear) Urine pH 6.5 (5.0-8.0) pH Units Ur Specific [place] < 1.005 L (1.010-1.025) Urine Protein Negative (Neg-Trace) mg/dL Urine Glucose (UA) Normal (Normal) mg/dL Urine Ketones Negative (Negative) mg/dL Urine Blood Moderate H (Negative) Urine Nitrite Negative (Negative) Urine Bilirubin Negative (Negative) Urine Urobilinogen Normal (Normal) mg/dL Ur Leukocyte Esterase Moderate H (Negative) Urine Microscopic RBC (0-3) per hpf Urine Microscopic WBC 0-3 (0-3) per hpf Ur Squamous Epith Cells Many H (None-Few) per lpf Urine Bacteria None Seen (None-Few) per hpf Hyaline Casts None Seen (None-Few) per lpf Ur Culture Indicated? (NO) Urine Test (Negative) Stool Occult Blood Positive A (Negative) Stl C. cayetanensis PCR Not detected (Not detect) Stool Rotavirus A PCR Not detected (Not detect) Stl Adenov F 40/41 PCR Not detected (Not detect) Stool Astrovirus (PCR) Not detected (Not detect) Stool Campylobacter PCR Not detected (Not detect) Stool Cryptosporidium PCR Not detected (Not detect) Stl Sh Tox Pr E STEC PCR Not detected (Not detect) Stool E coli O157 PCR Not detected (Not detect) Stl Enterotoxigenic E PCR Not detected (Not detect) Stool EPEC (PCR) Not detected (Not detect) Stool EAEC (PCR) Not detected (Not detect) Stl E. histolytica PCR Not detected (Not detect) Stool Giardia Lamblia PCR DETECTED A* (Not detect) Stool Salmonella PCR Not detected (Not detect) Stool Sapovirus (PCR) Not detected (Not detect) Stl P. shigelloides PCR Not detected (Not detect) Stl Shigella/EIEC PCR Not detected (Not detect) St Y.enterocolitica PCR Not detected (Not detect) Stool Vibrio (PCR) Not detected (Not detect) Stl Vibrio cholerae PCR Not detected (Not detect) Stl Norovirus GI/GII PCR DETECTED A (Not detect) Stl GI Panel (PCR) Com See below C.diff Toxin Gene (HADLEY) Not detected (Not detect) Hepatitis A IgM Ab (Nonreactive) Hep Bs Antigen (Nonreactive) Hep B Core IgM Ab (Nonreactive) Hepatitis C Ab Screen (Nonreactive) 03/31/18 03/31/18 03/31/18 Range/Units 08:13 08:13 08:09 Ur Specimen Adequacy See below A Urine Color Dark Yellow (Yellow) Urine Clarity Turbid A (Clear) Urine pH 5.0 (5.0-8.0) pH Units Ur Specific [place] 1.020 (1.010-1.025) Urine Protein 100 H (Neg-Trace) mg/dL Urine Glucose (UA) Normal (Normal) mg/dL Urine Ketones Trace H (Negative) mg/dL Urine Blood Large H (Negative) Urine Nitrite Negative (Negative) Urine Bilirubin Moderate H (Negative) Urine Urobilinogen Normal (Normal) mg/dL Ur Leukocyte Esterase Moderate H (Negative) Urine Microscopic RBC TNTC H (0-3) per hpf Urine Microscopic WBC 15-30 H (0-3) per hpf Ur Squamous Epith Cells Many H (None-Few) per lpf Urine Bacteria Few (None-Few) per hpf Hyaline Casts None Seen (None-Few) per lpf Ur Culture Indicated? NO. A (NO) Urine Test Negative (Negative) Stool Occult Blood (Negative) Stl C. cayetanensis PCR (Not detect) Stool Rotavirus A PCR (Not detect) Stl Adenov F 40/41 PCR (Not detect) Stool Astrovirus (PCR) (Not detect) Stool Campylobacter PCR (Not detect) Stool Cryptosporidium PCR (Not detect) Stl Sh Tox Pr E STEC PCR (Not detect) Stool E coli O157 PCR (Not detect) Stl Enterotoxigenic E PCR (Not detect) Stool EPEC (PCR) (Not detect) Stool EAEC (PCR) (Not detect) Stl E. histolytica PCR (Not detect) Stool Giardia Lamblia PCR (Not detect) Stool Salmonella PCR (Not detect) Stool Sapovirus (PCR) (Not detect) Stl P. shigelloides PCR (Not detect) Stl Shigella/EIEC PCR (Not detect) St Y.enterocolitica PCR (Not detect) Stool Vibrio (PCR) (Not detect) Stl Vibrio cholerae PCR (Not detect) Stl Norovirus GI/GII PCR (Not detect) Stl GI Panel (PCR) Com C.diff Toxin Gene (HADLEY) (Not detect) Hepatitis A IgM Ab Nonreactive (Nonreactive) Hep Bs Antigen Nonreactive (Nonreactive) Hep B Core IgM Ab Nonreactive (Nonreactive) Hepatitis C Ab Screen Nonreactive (Nonreactive) - Impressions Impressions Chest X-Ray 04/04/18 08:15 IMPRESSION: No acute cardiopulmonary disease. D/ / Stephen Brandt MD / Stephen Brandt MD Interpreting Provider: Stephen Brandt MD Abdomen/Pelvis CT 04/04/18 15:20 IMPRESSION: 1. No significant findings in the chest. Incidental right aortic arch. 2. Stable mesenteric lymphadenopathy throughout the abdomen. Underlying etiology is uncertain. No additional findings in the abdomen or pelvis. D/ / Wilbur Mistry MD / Wilbur Mistry MD Interpreting Provider: Wilbur Mistry MD Chest CT 04/04/18 15:20 IMPRESSION: 1. No significant findings in the chest. Incidental right aortic arch. 2. Stable mesenteric lymphadenopathy throughout the abdomen. Underlying etiology is uncertain. No additional findings in the abdomen or pelvis. D/ / Wilbur Mistry MD / Wilbur Mistry MD Interpreting Provider: Wilbur Mistry MD Exam - Constitutional Vitals: Temp Pulse Resp BP Pulse Ox 97.8 F 78 18 107/69 96 04/05/18 07:27 04/05/18 07:27 04/05/18 07:27 04/05/18 07:27 04/05/18 07:27 Exam: General: No acute distress, asleep in bed HEENT: head normocephalic/atraumatic, EOMI, PERRL, sclera anicteric, moist mucus membranes, no oral lesions Neck: Supple, no meningismus Cardio: RRR, no murmurs, +S1/S2, no edema Pulm: CTAB, no wheezing, rhonchi, rales. Normal respiratory effort. Abdomen: soft, nontender, normal bowel sounds, no rebound, rigidity, guarding, distention; no suprapubic tenderness to palpation Extremities: No LE edema, no calf tenderness, no cyanosis, 2+/4 pedal pulses bilaterally Neuro: AAOx3, no focal deficits, no speech deficit, mentating well, CN II-XII grossly intact, moves extremities spontaneously MSK: Strength 5/5 throughout, no visible deformities Skin: clean, dry, intact, no visible rashes Psych: Appropriate mood and affect. Answers questions appropriately. Cooperative with exam Consult Discharge Plan - Plan Referrals: Semaj Bashir MD [Primary Care Provider] - 04/11/18 1:00 pm () Prescriptions: RX: Lactobacillus [Culturelle] 1 each PO BID #30 cap.viviana RX: Omeprazole [PriLOSEC] 20 mg PO DAILY@0630 #14 capsule. RX: Tinidazole [Tindamax] 2,000 mg PO ONCE 1 Days #4 tablet - Attending Attestation I examined this patient and my medical decision-making was reviewed with the Resident Physician. I agree with the documented findings, disposition and treatment plan as described except to the extent set forth below.
[2018-04-05] MEDS: Nicotine 14 MG PATCH.TD24 TD SCH (10:25)
[2018-04-05] MEDS: Lactobacillus 1 EACH CAP.SPRINK PO SCH (10:25)
[2018-04-05] MEDS: metroNIDAZOLE 500 MG TABLET PO SCH (10:25)
[2018-04-05 11:28] VITALS: BP 130/80
[2018-04-05 13:41] LABS: C-Reactive Protein 15 mg/L (Less than 10)
--- NOTE | 2018-04-05 15:57 | Discharge Summary ---
- NOTES TO OUTPATIENT PROVIDER Notes to Outpatient Provider: Follow-up with PCP in 1-2 [id number] ESR, celiac panel, HIV test report, final blood culture report. Avoid fried food and dairy for 1-2 week Orders not resulted at time of discharge: Pending orders 04/04/18 08:17 Urinalysis reflex Microscopic [URIN] Routine 04/04/18 09:44 Culture,Blood [BC] Stat 04/04/18 12:50 Celiac Disease Reflex Jewell Routine 04/04/18 15:46 HIV Qualitative PCR(Detection) Routine 04/05/18 03:57 ESR [Erythrocyte Sedimentation Rate] [HEME] Stat 04/05/18 14:51 HIV-1&2 Antibody & p24 Ag Routine 04/06/18 04:00 Complete Blood Count [HEME] AM 0400 Date of Encounter: 04/05/18 Time of Encounter: 15:53 - Discharge Diagnosis (1) Gastroenteritis Priority: Primary Status: Acute Assessment and Plan: Improving progressively and able to tolerate liquid diet. still has watery consistency with significant decrease in frequency. Discussed discharge plan with ID specialist who is okay to discharge patient home on tinidazole 2 g by mouth 1 and is stopped Flagyl. ID also advised to order ESR, CRP, HIV to rule out any underlying infectious or vasculitis etiology-patient has to follow report to with her PCP. Celiac panel was ordered by GI specialist and has to follow up on OPD basis. Consulted GI specialist for persistent symptoms and also declining hemoglobin to rule out underlying GI pathology and he recommended continue medical management as he think heavy bleeding due to menstrual problem and ordered celiac panel. Hemoccult positive but seems like contaminated by vaginal bleeding (2) Polycystic ovarian syndrome Priority: Secondary Status: Acute Assessment and Plan: per hx. Follow-up with PCP outpatient . A1c 6.2 (3) Morbid obesity Priority: Secondary Status: Acute Assessment and Plan: BMI 42. Lifestyle modifications encouraged. Supposed to be on metformin and lisinopril at home for her polycystic ovarian syndrome but not taking any medication. (4) Sepsis Priority: Primary Status: Acute Assessment and Plan: On admission with fever, elevated WBC and tachycardia on arrival but normal lactic acid. Secondary to gastroenteritis possibly. First blood cx's no growth yet. Patient spiked temperature again therefore repeat blood culture ordered and with no growth ER but final culture report has to be followed by PCP. Consulted ID specialist who did repeat CT abdomen and chest with no acute finding. He also advised ESR and CRP to rule out underlying vasculitis and report has to be followed by PCP. Patient has been fever free for more than 36 hours. ID specialist okay to discharge patient home with the above-mentioned recommendation . Qualifiers: Sepsis type: sepsis due to unspecified organism Qualified Code(s): A41.9 - Sepsis, unspecified organism (5) Giardiasis Priority: Primary Status: Acute Assessment and Plan: As mentioned above (6) Norovirus Priority: Primary Status: Acute Assessment and Plan: As mentioned above (7) Tobacco abuse Priority: Secondary Status: Acute Assessment and Plan: Education for smoking cessation and resources made available (8) Hypertension Priority: Secondary Status: Acute Assessment and Plan: Has been well controlled during this hospital stay. But was told by PCP in the past and supposed to have antihypertensive medicine. Follow-up with PCP Qualifiers: Hypertension type: unspecified Qualified Code(s): I10 - Essential (primary) hypertension (9) GERD (gastroesophageal reflux disease) Priority: Secondary Status: Acute Assessment and Plan: Continue PPI Qualifiers: Esophagitis presence: esophagitis presence not specified Qualified Code(s): K21.9 - Gastro-esophageal reflux disease without esophagitis Hospital course: Ms. Dos Santos is a 22 year old female got admitted for acute gastroenteritis and diagnosed for Giardia and rotavirus. Patient had very slow progress in recovery and with fluctuance CN electrolyte imbalance therefore consulted ID specialist especially patient despite temperature. Repeat blood culture with no acute finding. Please see details in diagnosis section of discharge summary. At the time of discharge patient clinically and hemodynamically stable, tolerating liquid diet in significant decrease in frequency only 4 times in last 24 hours with watery consistency therefore discussed discharge planning with especially to is okay to discharge patient home with further follow-up with PCP. It was also advised to avoid fried food and daily for next 1-2 weeks until GI mucositis started to repair itself. Will discharge patient on tinidazole 2 gram by mouth 1, lactobacillus, PPI. If worsening of symptoms he needs to call PCP or come to ER immediately. She can also use high potassium diet such as banana also advised to take plenty of fluid with electrolytes while still having diarrhea. Discharge discussed with: patient, family, nurse - Time Spent with Patient Total time spent providing and/or coordinating discharge services: Less than 30 minutes - Discharge Medications Home Medications: Lactobacillus [Culturelle] 1 each PO BID #30 cap.viviana 04/05/18 [Rx] Omeprazole [PriLOSEC] 20 mg PO DAILY@0630 #14 capsule.dr 04/05/18 [Rx] Tinidazole [Tindamax] 2,000 mg PO ONCE 1 Days #4 tablet 04/05/18 [Rx] Allergies/Adverse Reactions: Allergy/AdvReac Type Severity Reaction Status Date / Time No Known Allergies Allergy Verified 12/19/15 22:18 Date of admission: 04/04/18 13:20 Primary care physician: Semaj Bashir MD Consults: 04/03/18 13:10 Consult to Gastroenterology [CONS] Routine Consulting Provider: [facility] [place] Reason for Consult: Giardiasis Call Completed: Yes 04/04/18 08:18 Consult to Infectious Diseases [CONS] Routine Consulting Provider: [facility] Reason for Consult: severe giardiasis Call Completed: Yes - Constitutional Vitals: Temp Pulse Resp BP Pulse Ox 98.1 F 82 18 130/80 96 04/05/18 11:25 04/05/18 11:25 04/05/18 11:25 04/05/18 11:25 04/05/18 11:25 General appearance: Present: A&O X 3, morbidly obese, pleasant, no acute distress Exam: General appearance: No acute distress, Head exam: Atraumatic Eye exam: EOMI, PERRLA ENT exam: Moist oral mucosa Neck nontender, supple Respiratory exam: Clear to auscultation bilaterally Cardiovascular exam: Regular rate and rhythm, no systolic murmur Abdominal exam: Soft, nontender, nondistended, positive bowel sounds Extremities exam: No calf tenderness, no pedal edema Present: Skin-no rash, warm, dry, intact Neurological exam: Alert, awake, oriented 3, CN II-XII intact, no focal deficits. No facial droop. Normal speech. Normal gait. - Patient Status Disposition: Home, Self-Care Condition: Fair Overall status at discharge: patient is progressing back to baseline - Discharge Instructions Follow Up With: Semaj Bashir MD [Primary Care Provider] - 04/11/18 1:00 pm () Forms: ED Satisfaction Letter - Diet and Activity Activity: increase activity as tolerated
== END 2018-04-05 17:03 | disposition home or self-care (01) | DRG 872 ==
LOC: 3BNU 07:40 → EMEROOARM 07:40 → 3BNU 12:55
PROVIDERS: ADMIT Hospitalist; ATTEND Hospitalist

== ENCOUNTER 2020-09-01 12:24 | Observation (INO) ==
[2020-09-01 16:39] LABS: Basophils # 0.1 K/mcL (0.0-0.2); Basophils % 0.5 %; Eosinophils # 0.2 K/mcL (0.0-0.6); Eosinophils % 1.6 %; Hematocrit 40.4 % (35.3-44.9); Hemoglobin 12.3 g/dL (11.5-15.4); Immature Granulocytes % 0.3 % (0-4); Lymphocytes # 4.2 K/mcL (0.6-4.6); Lymphocytes % 28.2 %; Mean Corpuscular HGB Conc 30.4 g/dL (31.6-35.5); Mean Corpuscular Hemoglobin 24.1 pg (28.0-33.3); Mean Corpuscular Volume 79.2 fL (83.0-100.0); Mean Platelet Volume 9.6 fL (9.4-12.4); Monocytes # 0.9 K/mcL (0.0-1.3); Monocytes % 5.8 %; Neutrophils # 9.4 K/mcL (1.6-8.9); Platelet Count 402 K/mcL (140-400); Red Cell Distribution Width 15.2 % (11.5-14.5); Segmented Neutrophils % 63.6 %; White Blood Count 14.8 K/mcL (4.3-11.1)
[2020-09-01 16:50] LABS: INR 1.2; Prothrombin Time 14.1 Seconds (9.4-12.1)
[2020-09-01 17:03] LABS: BUN/Creatinine Ratio 22 (6-26); Blood Urea Nitrogen 12 mg/dL (6-20); Calcium 9.1 mg/dL (8.6-10.3); Carbon Dioxide 27 mEq/L (23-29); Chloride 104 mEq/L (98-107); Glucose 87 mg/dL (70-105); Osmolality,Calculated 285 (280-300); Sodium 138 mEq/L (136-145); eGFR For African Americans > 60 (> 60); eGFR For Non-African Americans > 60 (> 60)
[2020-09-01 17:07] LABS: Troponin I 0.06 ng/mL (< 0.04)
[2020-09-01 17:10] LABS: Macrocytosis Present (Not Present); Ovalocytes 1+ (Not Present)
[2020-09-01 17:11] LABS: Large Platelets Present (Not Present); Platelet Estimate Normal (Normal)
[2020-09-01] MEDS ORDERED: Aspirin 81 MG TAB.CHEW PO STA (18:20)
[2020-09-01] MEDS ORDERED: Isovue-370 500 ML BOTTLE IVP ONE (18:20)
[2020-09-01 21:57] LABS: Amphetamine Screen,Urine Negative ng/mL (Cutoff=1000); Barbiturate Screen,Urine Negative ng/mL (Cutoff=200); Benzodiazepines Screen,Urine Negative ng/mL (Cutoff=200); Cannabinoid Screen,Urine Negative ng/mL (Cutoff = 50); Cocaine Screen,Urine Negative ng/mL (Cutoff= 300); Opiate Screen,Urine Negative ng/mL (Cutoff=300); Phencyclidine Screen,Urine Negative ng/mL (Cutoff=25)
[2020-09-01] MEDS ORDERED: Perflutren Lipid Microsphere 1.3 ML in 0.9 % Sodium Chloride 8.7 ML IVP PRN (23:26)
[2020-09-01] MEDS ORDERED: *HR* Heparin 5,000 UNIT/ML VIAL IVP PRN ×2 (23:33)
[2020-09-01] MEDS ORDERED: *HR* Heparin 5,000 UNIT/ML VIAL IVP ONE (23:33)
[2020-09-01] MEDS ORDERED: Morphine Sulfate 2 MG/ML SYRINGE IVP PRN (23:33)
[2020-09-01] MEDS ORDERED: Nitroglycerin 0.4 MG TAB.SUBL SL PRN (23:35)
[2020-09-01] MEDS ORDERED: Heparin 25,000UNIT/250ML 1/2NS 25,000 UNIT/250 ML IV.SOLN IVC SCH (23:45)
[2020-09-01] MEDS ORDERED: Acetaminophen 325 MG TABLET PO PRN (23:50)
[2020-09-01] MEDS ORDERED: Ondansetron 4 MG/2 ML VIAL IVP PRN (23:50)
[2020-09-01] MEDS ORDERED: Naloxone 0.4 MG/ML INJ IVP PRN (23:50)
[2020-09-02 01:39] LABS: Hematocrit 36.6 % (35.3-44.9); Hemoglobin 11.2 g/dL (11.5-15.4); Mean Corpuscular HGB Conc 30.6 g/dL (31.6-35.5); Mean Corpuscular Hemoglobin 24.1 pg (28.0-33.3); Mean Corpuscular Volume 78.7 fL (83.0-100.0); Platelet Count 363 K/mcL (140-400); Red Blood Count 4.65 M/mcL (3.82-4.97); Red Cell Distribution Width 15.4 % (11.5-14.5)
[2020-09-02 01:47] LABS: Heparin anti-factor XA UFH 0.83 IU/mL (0.30-0.70); INR 1.3; Prothrombin Time 14.4 Seconds (9.4-12.1)
[2020-09-02 01:58] LABS: BUN/Creatinine Ratio 22 (6-26); Blood Urea Nitrogen 13 mg/dL (6-20); Calcium 8.4 mg/dL (8.6-10.3); Carbon Dioxide 24 mEq/L (23-29); Chloride 105 mEq/L (98-107); Chol/HDL Ratio 8.3 (0-4.9); Cholesterol 165 mg/dL (< 200); Glucose 146 mg/dL (70-105); HDL Cholesterol 20 mg/dL (40-59); LDL Cholesterol,Calculated 103 mg/dL (< 100); Magnesium 2.1 mg/dL (1.6-2.6); Osmolality,Calculated 289 (280-300); Potassium 3.5 mEq/L (3.5-5.1); Sodium 138 mEq/L (136-145); Triglycerides 211 mg/dL (< 150); eGFR For African Americans > 60 (> 60); eGFR For Non-African Americans > 60 (> 60)
[2020-09-02 02:12] LABS: Thyroid Stimulating Hormone 4.43 mcIU/mL (0.340-5.600)
[2020-09-02 02:32] LABS: Activated Partial Thrombo Time 164.9 Seconds (26.0-36.0)
[2020-09-02 02:43] LABS: Estimated Average Glucose 134 mg/dl; Hemoglobin A1C 6.3 %
[2020-09-02 03:04] LABS: Folate 13.1 ng/mL (3.0-16.0)
[2020-09-02 07:15] LABS: Amorphous Sediment,Urine Few per hpf (None-Few); Bilirubin,Urine Negative (Negative); Blood,Urine Negative (Negative); Clarity,Urine Turbid (Clear); Color,Urine Yellow (Yellow); Glucose,Urine (UA) Normal (Normal); Ketones,Urine Negative (Negative); Leukocyte Esterase,Urine Negative (Negative); Mucus,Urine Few per lpf (None-Few); Nitrite,Urine Negative (Negative); Protein,Urine Trace mg/dL (Neg-Trace); Specific Gravity,Urine > 1.030 (1.010-1.025); Squamous Epithelial Cell,Urine Moderate per hpf (None-Few); WBC,Urine 0-3 per hpf (0-3)
[2020-09-02] MEDS ORDERED: Regadenoson 0.4 MG/5 ML SYRINGE IVP ONE (08:27)
[2020-09-02] MEDS ORDERED: lisinopriL 5 MG TABLET PO SCH (09:00)
[2020-09-02] MEDS ORDERED: Aspirin Enteric Coated 81 MG Tablet PO SCH (09:00)
[2020-09-02 11:26] VITALS: BP 136/74; PULSE 59; TEMP 97.9; O2SAT 98
[2020-09-02] MEDS ORDERED: Perflutren Lipid Microsphere 1.3 ML in 0.9 % Sodium Chloride 8.7 ML IVP PRN (14:01)
== END 2020-09-02 15:55 | disposition home or self-care (01) ==
LOC: EMEROOARM 12:24 → 3BNU 12:24
PROVIDERS: ADMIT Student in an Organized Health Care Education/Training Program; ATTEND Student in an Organized Health Care Education/Training Program